=== PATIENT | male | born 1950 | race Caucasian/White ===

== ENCOUNTER 2017-08-23 01:33 | Inpatient (IN) | payer MEDICARE, MEDICAID ==
[2017-08-23 02:33] VITALS: BP 112/71
[2017-08-23] MEDS ORDERED: Magnesium Hydroxide (MOM) 30 mL UDC PO PRN ×2 (02:34→02:37)
[2017-08-23] MEDS ORDERED: Maalox 30 mL Cup PO PRN ×2 (02:34→02:37)
[2017-08-23] MEDS: Levothyroxine 0.025 Mg Tab PO SCH (06:58)
[2017-08-23] MEDS: Pantoprazole 40 mg EC Tab PO SCH (08:14)
[2017-08-23] MEDS: Multivitamin Tab PO SCH (08:14)
[2017-08-23] MEDS: Benztropine 1 MG TAB PO SCH (08:14)
[2017-08-23] MEDS ORDERED: Guaifenesin DM 10 ML UDC PO PRN (13:38)
[2017-08-23] MEDS: Albuterol/Ipratropium Neb 3 ML AERS HHN SCH ×2 (15:31→19:21)
[2017-08-23] MEDS: predniSONE 5 mg/5 mL UDC PO SCH (16:17)
[2017-08-23] MEDS: INSULIN ASPART SLIDING SCALE 100 UNITS/ML UNIT SUBQ SCH ×2 (17:11→21:59)
--- NOTE | 2017-08-23 17:16 | History & Physical ---
ADMIT DATE: 08/23/2017 PATIENT IDENTIFICATION: A 67-year-old male. REQUESTING PHYSICIAN: Dr. Farias. CHIEF COMPLAINT: "I am depressed, I am coughing and have short of breath." HISTORY OF PRESENT ILLNESS: A 67-year-old resident of [facility], presented to [facility] for suicidal ideation where patient was wanted to jump into traffic. The patient was seen by Emergency Room MD. He had appropriate workup and the patient was transferred to Geropsych Unit at [facility] for further care. PAST MEDICAL HISTORY: Remarkable for: 1. Diabetes. 2. Hypothyroidism. 3. Degenerative joint disease. 4. Peripheral neuropathy. 5. Chronic obstructive pulmonary disease. MEDICATIONS LIST: Medications patient taking, which include; 1. Tylenol. 2. Cogentin. 3. Coreg. 4. Cymbalta. 5. Lexapro. 6. Gabapentin. 7. Synthroid. 8. [place] carbonate. 9. Ativan. 10. Milk of magnesia. 11. Multivitamin. 12. Zyprexa. 13. Protonix. 14. Ambien. ALLERGIES: The patient is not allergic to medications. SOCIAL HISTORY: The patient lives in a [facility]. The patient quit smoking a few months ago. The patient denied any alcohol or drug use. The patient was once and he is . He has a son who lives in [place] and has no connection with him. FAMILY HISTORY: Unremarkable. REVIEW OF SYSTEMS: The patient complained of productive cough, congestion, and shortness of breath with exertion. The patient denies any paroxysmal nocturnal dyspnea or orthopnea. He did have a fall and he does have some abrasions on his hand as well as a resolving hematoma on the left eye. The patient denies any headache, denies any blurred vision or double vision. Denies any chest pain. Denies any abdominal pain. Denies any nausea, vomiting, or hematemesis. Denies any hematuria, hematochezia, or melena. Denies any seizure. PHYSICAL EXAMINATION: GENERAL: Alert, awake, oriented, lying in the bed. VITAL SIGNS: Temperature 97.3, pulse 76, respiratory rate 18, and blood pressure 112/71. HEENT: Normocephalic, atraumatic. Excoriation on the forehead, nasolabial fold, and both cheeks area noted. Extraocular muscles are intact. Tongue was pink and coated. Oropharynx congested. Nasal mucosa congested. Sclerae without icterus. NECK: Supple, no JVD, no hepatojugular reflex. No lymphadenopathy, thyromegaly, or carotid bruit. HEART: Both heart sounds are regular. No S3, no S4. CHEST: Lung equal in expansion. ____ expiratory wheezing throughout. ABDOMEN: Soft. No guarding, no rigidity. Liver and spleen nonpalpable. No palpable mass. EXTREMITIES: No edema or cyanosis. Multiple superficial running on the dorsal aspect of the right hand noted, but no calf tenderness. Peripheral pulses are +1. NEUROLOGIC: Alert and awake, follows command. No facial asymmetry. Power in upper and lower extremities 5-. Sensation to touch were decreased in both lower extremity. Slightly broad-based gait noted. RECTAL EXAMINATION: Not done. EXTERNAL GENITAL EXAMINATION: Not done. AVAILABLE DIAGNOSTIC DATA: Performed at hospital at [facility] has been reviewed. CLINICAL IMPRESSION: 1. Psychotic disorder exacerbation. 2. Chronic obstructive pulmonary disease exacerbation. 3. Diabetes mellitus. 4. Rosacea. 5. Hypertension. 6. Hyperlipidemia. 7. Hypothyroidism. 8. Degenerative joint disease. 9. High risk for fall. 10. Debility. 11. Multiple superficial cuts and resolving hematoma on the right eye. PLAN: 1. The patient is admitted to Geropsych Unit. At this time, the patient is to have oxygen. 2. Nebulizer treatment. 3. Oral antibiotic. 4. Oral steroid. 5. Robitussin. 6. Hydrocortisone cream for the rash. 7. Monitor blood sugar and blood pressure. 8. Sliding scale insulin. 9. Appropriate home medicine reconciliation. 10. Fall precaution. 11. Psych medication and psych followup. 12. General nursing care. 13. The patient will be followed by us during the stay at Geropsych Unit. Sincerely, thank you, Dr. Farias, for giving me the opportunity to participate in patient of yours. JOB# [id number]
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
[2017-08-24] MEDS: Albuterol/Ipratropium Neb 3 ML AERS HHN SCH ×4 (00:44→19:44)
[2017-08-24] MEDS: Levothyroxine 0.025 Mg Tab PO SCH (06:47)
[2017-08-24] MEDS: INSULIN ASPART SLIDING SCALE 100 UNITS/ML UNIT SUBQ SCH ×4 (06:50→21:09)
[2017-08-24] MEDS: Benztropine 1 MG TAB PO SCH (08:15)
[2017-08-24] MEDS: Multivitamin Tab PO SCH (08:16)
[2017-08-24] MEDS: Pantoprazole 40 mg EC Tab PO SCH (08:16)
[2017-08-24] MEDS: predniSONE 5 mg/5 mL UDC PO SCH ×2 (09:01→16:46)
--- NOTE | 2017-08-24 12:15 | General Progress Note ---
Subjective - Review of Systems Subjective: Patient is seen and examined. Patient is feeling little better. Patient is still coughing and congested. Patient denies any fever, chills, chest pain, abdominal pain, nausea, vomiting, headache, seizure. Objective - Results Recent Labs: Laboratory Last Values POC Glucose 110 MG/DL (70 - 105) H 08/24/17 11:42 - Physical Exam Vitals and I&O: Vital Signs Temp 98.2 F 08/23/17 14:00 Pulse 72 08/24/17 08:17 Resp 20 08/24/17 08:00 BP 105/60 08/24/17 08:17 Pulse Ox 95 08/24/17 07:12 Intake & Output 08/23/17 08/24/17 08/24/17 18:59 06:59 18:59 Intake Total 1200 Balance 1200 Intake: Oral 1200 Other: # Bowel Movements 1 Active Medications: Current Medications Acetaminophen (Tylenol) 650 mg PO Q6H PRN PRN Reason: Mild Pain/Headache/T above 101 Stop: 10/22/17 02:33 Last Admin: 08/24/17 04:10 Dose: 650 mg Al Hydrox/Mg Hydrox/Simethicone (Maalox) 30 ml PO Q4HR PRN PRN Reason: GI DISTRESS Stop: 10/22/17 02:36 Albuterol/Ipratropium (Duoneb Neb) 3 ml HHN Q6HRT [facility] Stop: 10/22/17 15:59 Last Admin: 08/24/17 07:10 Dose: 3 ml Benztropine Mesylate (Cogentin) 1 mg PO DAILY [facility] Stop: 10/22/17 08:59 Last Admin: 08/24/17 08:15 Dose: 1 mg Carvedilol (Coreg) 6.25 mg PO BID [facility] Stop: 10/22/17 08:59 Last Admin: 08/24/17 08:17 Dose: Not Given Duloxetine HCl (Cymbalta) 30 mg PO BID [facility] PRN Reason: Protocol Stop: 10/22/17 08:59 Last Admin: 08/24/17 08:15 Dose: 30 mg Escitalopram Oxalate (Lexapro) 20 mg PO DAILY [facility] PRN Reason: Protocol Stop: 10/22/17 08:59 Last Admin: 08/24/17 08:16 Dose: 20 mg Gabapentin (Neurontin) 100 mg PO TID [facility] Stop: 10/22/17 08:59 Last Admin: 08/24/17 08:15 Dose: 100 mg Guaifenesin/Dextromethorphan (Robitussin Dm) 5 ml PO Q6HR PRN PRN Reason: Cough Stop: 10/22/17 13:37 Hydrocortisone (Hydrocortisone 1%) 1 appl TP BID [facility] Stop: 10/22/17 16:59 Last Admin: 08/24/17 08:17 Dose: 1 appl Insulin Aspart (Novolog Insulin Sliding Scale) 0 units SUBQ ACHS [facility] PRN Reason: Protocol Stop: 10/22/17 16:29 Last Admin: 08/24/17 11:44 Dose: Not Given Levofloxacin (Levaquin) 500 mg PO DAILY [facility] Stop: 10/23/17 08:59 Last Admin: 08/24/17 08:15 Dose: 500 mg Levothyroxine Sodium (Synthroid) 0.025 mg PO QDAC [facility] Stop: 10/22/17 07:29 Last Admin: 08/24/17 06:47 Dose: 0.025 mg [place] Carbonate (Eskalith) 300 mg PO TID [facility] PRN Reason: Protocol Stop: 10/22/17 08:59 Last Admin: 08/24/17 08:15 Dose: 300 mg Lorazepam (Ativan) 1 mg PO Q6H PRN; Protocol PRN Reason: Anxiety/Agitation Stop: 10/22/17 02:33 Last Admin: 08/24/17 09:01 Dose: 1 mg Magnesium Hydroxide (Milk Of Magnesia) 30 ml PO HS PRN PRN Reason: Constipation Multivitamins/Vitamin C (Theragran) 1 tab PO DAILY [facility] Stop: 10/22/17 08:59 Last Admin: 08/24/17 08:16 Dose: 1 tab Olanzapine (Zyprexa) 20 mg PO DAILY [facility] PRN Reason: Protocol Stop: 10/22/17 08:59 Last Admin: 08/24/17 08:16 Dose: 20 mg Ondansetron HCl (Zofran Odt) 4 mg PO Q6H PRN PRN Reason: Nausea / Vomiting Stop: 10/22/17 02:33 Pantoprazole Sodium (Protonix) 40 mg PO DAILY [facility] Stop: 10/22/17 08:59 Last Admin: 08/24/17 08:16 Dose: 40 mg Prednisone (Prednisone) 20 mg PO BID [facility] Stop: 08/27/17 16:59 Last Admin: 08/24/17 09:01 Dose: 20 mg Zolpidem Tartrate (Ambien) 5 mg PO HS PRN PRN Reason: Insomnia Stop: 10/22/17 02:36 General: Alert, Cooperative, No acute distress HEENT: Atraumatic, PERRLA, EOMI Neck: Supple, +2 carotid pulse wo bruit Cardiovascular: Regular rate, Normal S1, Normal S2 Lungs: Other (diffuse expiratory wheezing.) Abdomen: Bowel sounds, Soft, Other (no hepatosplenomegaly.) Extremities: Other (diffuse osteoarthritic changes present.) Neurological: Other (broad-based gait. Normal speech. Decreased power throughout upper and lower extremity.) Skin: Breakdown Psych/Mental Status: Other (depressed and labile.) Assessment/Plan - Assessment Assessment: COPD exacerbation. Diabetes mellitus. Hypothyroidism. Hypertension. DJD. Rosaceia High risk for fall. Debility. Decline in self care and mobility. - Plan Plan: By mouth antibiotic. By mouth prednisone. Hand-held nebulizer. Symptoms management. Medication management. General nursing care. Psychiatric medication. Psych follow-up. Fall precautions. Chronic disease management. Continue to follow this patient during his stay in the hospital.
[2017-08-24] MEDS ORDERED: Probiotic Screen MC PRN (16:20)
--- NOTE | 2017-08-24 18:07 | Progress Notes ---
DATE: 08/24/2017 SUBJECTIVE: The patient is seen on 08/24/2017. The patient remains symptomatic, still endorsing SI, wants to get hit by a bus or get hit by traffic, still feeling hopeless, helpless and despairing. Sleep poor. He states he is not eating well, low energy, feeling hopeless and helpless. MEDICATIONS: Reviewed including doses and frequencies. ASSESSMENT: The patient remains symptomatic, desperate for help, not safe for a lower level of care, still suicidal. PLAN: We will continue to monitor and given ongoing symptoms, not safe for discharge. [facility]# [id number]
[2017-08-25] MEDS: Albuterol/Ipratropium Neb 3 ML AERS HHN SCH ×4 (01:45→19:02)
[2017-08-25] MEDS: Levothyroxine 0.025 Mg Tab PO SCH (06:50)
[2017-08-25] MEDS: INSULIN ASPART SLIDING SCALE 100 UNITS/ML UNIT SUBQ SCH ×4 (07:18→22:28)
[2017-08-25] MEDS: Multivitamin Tab PO SCH (09:16)
[2017-08-25] MEDS: Benztropine 1 MG TAB PO SCH (09:17)
[2017-08-25] MEDS: Pantoprazole 40 mg EC Tab PO SCH (09:21)
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
--- NOTE | 2017-08-25 19:01 | General Progress Note ---
Subjective - Review of Systems Subjective: Patient is seen and examined. No new complaints. Objective - Results Recent Labs: Laboratory Last Values POC Glucose 126 MG/DL (70 - 105) H 08/25/17 16:35 - Physical Exam Vitals and I&O: Vital Signs Temp 98.2 F 08/25/17 15:00 Pulse 80 08/25/17 16:50 Resp 19 08/25/17 15:00 BP 129/78 08/25/17 16:50 Pulse Ox 97 08/25/17 15:00 Active Medications: Current Medications Acetaminophen (Tylenol) 650 mg PO Q6H PRN PRN Reason: Mild Pain/Headache/T above 101 Stop: 10/22/17 02:33 Last Admin: 08/25/17 15:23 Dose: 650 mg Al Hydrox/Mg Hydrox/Simethicone (Maalox) 30 ml PO Q4HR PRN PRN Reason: GI DISTRESS Stop: 10/22/17 02:36 Albuterol/Ipratropium (Duoneb Neb) 3 ml HHN Q6HRT [facility] Stop: 10/22/17 15:59 Last Admin: 08/25/17 13:44 Dose: 3 ml Benztropine Mesylate (Cogentin) 1 mg PO DAILY [facility] Stop: 10/22/17 08:59 Last Admin: 08/25/17 09:17 Dose: 1 mg Carvedilol (Coreg) 6.25 mg PO BID [facility] Stop: 10/22/17 08:59 Last Admin: 08/25/17 16:50 Dose: 6.25 mg Duloxetine HCl (Cymbalta) 30 mg PO BID [facility] PRN Reason: Protocol Stop: 10/22/17 08:59 Last Admin: 08/25/17 16:49 Dose: 30 mg Escitalopram Oxalate (Lexapro) 20 mg PO DAILY [facility] PRN Reason: Protocol Stop: 10/22/17 08:59 Last Admin: 08/25/17 09:21 Dose: 20 mg Gabapentin (Neurontin) 100 mg PO TID [facility] Stop: 10/22/17 08:59 Last Admin: 08/25/17 14:20 Dose: 100 mg Guaifenesin/Dextromethorphan (Robitussin Dm) 5 ml PO Q6HR PRN PRN Reason: Cough Stop: 10/22/17 13:37 Hydrocortisone (Hydrocortisone 1%) 1 appl TP BID [facility] Stop: 10/22/17 16:59 Last Admin: 08/25/17 16:53 Dose: Not Given Insulin Aspart (Novolog Insulin Sliding Scale) 0 units SUBQ ACHS [facility] PRN Reason: Protocol Stop: 10/22/17 16:29 Last Admin: 08/25/17 16:39 Dose: Not Given Levofloxacin (Levaquin) 500 mg PO DAILY [facility] Stop: 10/23/17 08:59 Last Admin: 08/25/17 09:17 Dose: 500 mg Levothyroxine Sodium (Synthroid) 0.025 mg PO QDAC [facility] Stop: 10/22/17 07:29 Last Admin: 08/25/17 06:50 Dose: 0.025 mg [place] Carbonate (Eskalith) 300 mg PO TID [facility] PRN Reason: Protocol Stop: 10/22/17 08:59 Last Admin: 08/25/17 14:20 Dose: 300 mg Lorazepam (Ativan) 1 mg PO Q6H PRN; Protocol PRN Reason: Anxiety/Agitation Stop: 10/22/17 02:33 Last Admin: 08/25/17 14:20 Dose: 1 mg Magnesium Hydroxide (Milk Of Magnesia) 30 ml PO HS PRN PRN Reason: Constipation Miscellaneous (Probiotic Screen) 1 ea [facility] PRN PRN PRN Reason: PROTOCOL Stop: 10/23/17 16:19 Multivitamins/Vitamin C (Theragran) 1 tab PO DAILY [facility] Stop: 10/22/17 08:59 Last Admin: 08/25/17 09:16 Dose: 1 tab Olanzapine (Zyprexa) 20 mg PO DAILY [facility] PRN Reason: Protocol Stop: 10/22/17 08:59 Last Admin: 08/25/17 09:21 Dose: 20 mg Ondansetron HCl (Zofran Odt) 4 mg PO Q6H PRN PRN Reason: Nausea / Vomiting Stop: 10/22/17 02:33 Pantoprazole Sodium (Protonix) 40 mg PO DAILY [facility] Stop: 10/22/17 08:59 Last Admin: 08/25/17 09:21 Dose: 40 mg Prednisone (Deltasone) 20 mg PO BID [facility] Stop: 10/24/17 16:59 Last Admin: 08/25/17 16:49 Dose: 20 mg Zolpidem Tartrate (Ambien) 5 mg PO HS PRN PRN Reason: Insomnia Stop: 10/22/17 02:36 General: Alert, Cooperative, No acute distress HEENT: Atraumatic, PERRLA, EOMI Neck: Supple, +2 carotid pulse wo bruit Cardiovascular: Regular rate, Normal S1, Normal S2 Lungs: Other (diffuse expiratory wheezing.) Abdomen: Bowel sounds, Soft, Other (no hepatosplenomegaly.) Extremities: Other (diffuse osteoarthritic changes present.) Neurological: Other (broad-based gait. Normal speech. Decreased power throughout upper and lower extremity.) Skin: Breakdown Psych/Mental Status: Other (depressed and labile.) Assessment/Plan - Assessment Assessment: COPD exacerbation improving. Diabetes mellitus. Hypothyroidism. Hypertension. DJD. [place] High risk for fall. Debility. Decline in self care and mobility. - Plan Plan: PO antibiotic. PO prednisone as ordered. Hand-held nebulizer. Symptoms management. Medication management. General nursing care. Psychiatric medication. Psych follow-up. Fall precautions. Chronic disease management.
[2017-08-26] MEDS: Albuterol/Ipratropium Neb 3 ML AERS HHN SCH ×4 (01:02→19:54)
[2017-08-26] MEDS: Levothyroxine 0.025 Mg Tab PO SCH (06:53)
[2017-08-26] MEDS: INSULIN ASPART SLIDING SCALE 100 UNITS/ML UNIT SUBQ SCH ×4 (07:01→21:00)
[2017-08-26] MEDS: Pantoprazole 40 mg EC Tab PO SCH (08:52)
[2017-08-26] MEDS: Multivitamin Tab PO SCH (08:54)
[2017-08-26] MEDS: Benztropine 1 MG TAB PO SCH (08:54)
--- NOTE | 2017-08-26 15:48 | Internal Medicine Prog Note ---
Internal Medicine Subjective - Subjective Service Date: 08/26/17 Patient seen and examined:: with staff Patient is:: awake, verbal, in bed, talking Per staff patient has:: no adverse event (HE EATING WELL AND TAKE MEDICATION) Internal Medicine Objective - Results Recent Labs: Laboratory Last Values POC Glucose 110 MG/DL (70 - 105) H 08/26/17 06:40 - Physical Exam Vitals and I&O: Vital Signs Temp 97.6 F 08/26/17 06:58 Pulse 82 08/26/17 13:03 Resp 18 08/26/17 15:38 BP 119/70 08/26/17 06:58 Pulse Ox 96 08/26/17 13:03 Intake & Output 08/25/17 08/26/17 08/26/17 18:59 06:59 18:59 Intake Total 480 Balance 480 Intake: Oral 480 Other: # Voids 1 Active Medications: Current Medications Acetaminophen (Tylenol) 650 mg PO Q6H PRN PRN Reason: Mild Pain/Headache/T above 101 Stop: 10/22/17 02:33 Last Admin: 08/26/17 11:04 Dose: 650 mg Al Hydrox/Mg Hydrox/Simethicone (Maalox) 30 ml PO Q4HR PRN PRN Reason: GI DISTRESS Stop: 10/22/17 02:36 Albuterol/Ipratropium (Duoneb Neb) 3 ml HHN Q6HRT [facility] Stop: 10/22/17 15:59 Last Admin: 08/26/17 13:03 Dose: Not Given Benztropine Mesylate (Cogentin) 1 mg PO DAILY [facility] Stop: 10/22/17 08:59 Last Admin: 08/26/17 08:54 Dose: 1 mg Carvedilol (Coreg) 6.25 mg PO BID [facility] Stop: 10/22/17 08:59 Last Admin: 08/26/17 08:53 Dose: Not Given Duloxetine HCl (Cymbalta) 30 mg PO BID [facility] PRN Reason: Protocol Stop: 10/22/17 08:59 Last Admin: 08/26/17 08:53 Dose: 30 mg Escitalopram Oxalate (Lexapro) 20 mg PO DAILY [facility] PRN Reason: Protocol Stop: 10/22/17 08:59 Last Admin: 08/26/17 08:54 Dose: 20 mg Gabapentin (Neurontin) 300 mg PO TID [facility] Stop: 10/25/17 15:44 Guaifenesin/Dextromethorphan (Robitussin Dm) 5 ml PO Q6HR PRN PRN Reason: Cough Stop: 10/22/17 13:37 Hydrocortisone (Hydrocortisone 1%) 1 appl TP BID [facility] Stop: 10/22/17 16:59 Last Admin: 08/25/17 16:53 Dose: Not Given Insulin Aspart (Novolog Insulin Sliding Scale) 0 units SUBQ ACHS [facility] PRN Reason: Protocol Stop: 10/22/17 16:29 Last Admin: 08/26/17 13:18 Dose: Not Given Levofloxacin (Levaquin) 500 mg PO DAILY [facility] Stop: 10/23/17 08:59 Last Admin: 08/26/17 08:52 Dose: 500 mg Levothyroxine Sodium (Synthroid) 0.025 mg PO QDAC [facility] Stop: 10/22/17 07:29 Last Admin: 08/26/17 06:53 Dose: 0.025 mg [place] Carbonate (Eskalith) 300 mg PO TID [facility] PRN Reason: Protocol Stop: 10/22/17 08:59 Last Admin: 08/26/17 13:18 Dose: 300 mg Lorazepam (Ativan) 1 mg PO Q6H PRN; Protocol PRN Reason: Anxiety/Agitation Stop: 10/22/17 02:33 Last Admin: 08/26/17 15:02 Dose: 1 mg Lorazepam (Ativan) 1 mg PO Q6HR PRN; Protocol PRN Reason: Agitation Stop: 10/25/17 15:23 Magnesium Hydroxide (Milk Of Magnesia) 30 ml PO HS PRN PRN Reason: Constipation Miscellaneous (Probiotic Screen) 1 ea [facility] PRN PRN PRN Reason: PROTOCOL Stop: 10/23/17 16:19 Multivitamins/Vitamin C (Theragran) 1 tab PO DAILY [facility] Stop: 10/22/17 08:59 Last Admin: 08/26/17 08:54 Dose: 1 tab Olanzapine (Zyprexa) 20 mg PO DAILY [facility] PRN Reason: Protocol Stop: 10/22/17 08:59 Last Admin: 08/26/17 08:54 Dose: 20 mg Ondansetron HCl (Zofran Odt) 4 mg PO Q6H PRN PRN Reason: Nausea / Vomiting Stop: 10/22/17 02:33 Pantoprazole Sodium (Protonix) 40 mg PO DAILY [facility] Stop: 10/22/17 08:59 Last Admin: 08/26/17 08:52 Dose: 40 mg Prednisone (Deltasone) 20 mg PO BID [facility] Stop: 10/24/17 16:59 Last Admin: 08/26/17 08:54 Dose: 20 mg Zolpidem Tartrate (Ambien) 5 mg PO HS PRN PRN Reason: Insomnia Stop: 10/22/17 02:36 General: alert HEENT: NC/AT, PERRLA, EOMI, anicteric sclerae, throat clear Neck: Supple, No JVD, No thyromegaly, +2 carotid pulse wo bruit, + JVD Lungs: CTAB Cardiovascular: RRR, Normal S1, Normal S2, without murmur Abdomen: soft, non-tender, non-distended Extremities: clear Neurological: no change Internal Medicine Assmt/Plan - Assessment Assessment: 1.COPD. 2.DM. 3.HTN. 4.HYPOTHYROIDISEM - Plan Plan: CONTINUE ON CURRENT MEDICATION AND DIET.
--- NOTE | 2017-08-26 20:20 | Progress Notes ---
DATE: 08/26/2017 SUBJECTIVE: The patient is seen, chart reviewed, discussed with staff. The patient states he feels suicidal, hopeless, despairing, want to drown himself, throwing water on his head and drowning efforts. States he feels hopeless, despairing "let me , let me ". Nothing works. The patient currently on Zyprexa, lithium, having a hard time with treatment. Currently, also on Cymbalta, gabapentin. The patient noting that he feels desperate for help. No psychotic symptoms noted. Sleeping fairly well. Appetite fair. Staff is closely monitoring him given his symptoms. ASSESSMENT: The patient remains symptomatic, depressed, withdrawn, suicidal, not stefan for safety. PLAN: Continue Cymbalta, continue Lexapro, continue lithium. We will increase Zyprexa. Will monitor and follow up. Will transfer to higher acuity locked unit at this time. JOB# [id number]
[2017-08-27] MEDS: INSULIN ASPART SLIDING SCALE 100 UNITS/ML UNIT SUBQ SCH ×4 (06:35→21:01)
[2017-08-27] MEDS: Levothyroxine 0.025 Mg Tab PO SCH (06:45)
[2017-08-27] MEDS: Albuterol/Ipratropium Neb 3 ML AERS HHN SCH ×3 (07:21→19:24)
[2017-08-27] MEDS: Benztropine 1 MG TAB PO SCH (08:16)
[2017-08-27] MEDS: Pantoprazole 40 mg EC Tab PO SCH (08:16)
[2017-08-27] MEDS: Multivitamin Tab PO SCH (08:16)
[2017-08-28] MEDS: Albuterol/Ipratropium Neb 3 ML AERS HHN SCH ×4 (01:05→19:35)
[2017-08-28] MEDS: Levothyroxine 0.025 Mg Tab PO SCH (06:43)
[2017-08-28] MEDS: INSULIN ASPART SLIDING SCALE 100 UNITS/ML UNIT SUBQ SCH ×4 (06:43→20:43)
[2017-08-28] MEDS: Pantoprazole 40 mg EC Tab PO SCH (08:31)
[2017-08-28] MEDS: Benztropine 1 MG TAB PO SCH (08:33)
[2017-08-28] MEDS: Multivitamin Tab PO SCH (08:35)
--- NOTE | 2017-08-28 15:31 | Internal Medicine Prog Note ---
Internal Medicine Subjective - Subjective Patient is:: awake, verbal, in bed, talking Per staff patient has:: no adverse event (HE EATING WELL AND TAKE MEDICATION) Internal Medicine Objective - Results Recent Labs: Laboratory Last Values POC Glucose 110 MG/DL (70 - 105) H 08/28/17 11:26 - Physical Exam Vitals and I&O: Vital Signs Temp 98.3 F 08/27/17 14:00 Pulse 87 08/28/17 13:20 Resp 20 08/28/17 13:20 BP 128/74 08/28/17 08:33 Pulse Ox 96 08/28/17 13:20 Intake & Output 08/27/17 08/28/17 08/28/17 18:59 06:59 18:59 Intake Total 1200 Balance 1200 Intake: Oral 1200 Other: # Bowel Movements 1 Stool Characteristics Soft Active Medications: Current Medications Acetaminophen (Tylenol) 650 mg PO Q6H PRN PRN Reason: Mild Pain/Headache/T above 101 Stop: 10/22/17 02:33 Last Admin: 08/28/17 10:24 Dose: 650 mg Al Hydrox/Mg Hydrox/Simethicone (Maalox) 30 ml PO Q4HR PRN PRN Reason: GI DISTRESS Stop: 10/22/17 02:36 Albuterol/Ipratropium (Duoneb Neb) 3 ml HHN Q6HRT [facility] Stop: 10/22/17 15:59 Last Admin: 08/28/17 13:18 Dose: Not Given Benztropine Mesylate (Cogentin) 1 mg PO DAILY [facility] Stop: 10/22/17 08:59 Last Admin: 08/28/17 08:33 Dose: 1 mg Carvedilol (Coreg) 6.25 mg PO BID [facility] Stop: 10/22/17 08:59 Last Admin: 08/28/17 08:33 Dose: 6.25 mg Clonazepam (Klonopin) 0.5 mg PO BID [facility] PRN Reason: Protocol Stop: 10/26/17 16:59 Last Admin: 08/28/17 10:19 Dose: 0.5 mg Duloxetine HCl (Cymbalta) 30 mg PO BID [facility] PRN Reason: Protocol Stop: 10/22/17 08:59 Last Admin: 08/28/17 08:31 Dose: 30 mg Escitalopram Oxalate (Lexapro) 20 mg PO DAILY [facility] PRN Reason: Protocol Stop: 10/22/17 08:59 Last Admin: 08/28/17 08:31 Dose: 20 mg Gabapentin (Neurontin) 300 mg PO TID [facility] Stop: 10/25/17 15:44 Last Admin: 08/28/17 13:04 Dose: 300 mg Guaifenesin/Dextromethorphan (Robitussin Dm) 5 ml PO Q6HR PRN PRN Reason: Cough Stop: 10/22/17 13:37 Hydrocortisone (Hydrocortisone 1%) 1 appl TP BID [facility] Stop: 10/22/17 16:59 Last Admin: 08/28/17 09:12 Dose: 1 appl Insulin Aspart (Novolog Insulin Sliding Scale) 0 units SUBQ ACHS [facility] PRN Reason: Protocol Stop: 10/22/17 16:29 Last Admin: 08/28/17 11:27 Dose: Not Given Levofloxacin (Levaquin) 500 mg PO DAILY [facility] Stop: 10/23/17 08:59 Last Admin: 08/28/17 08:28 Dose: 500 mg Levothyroxine Sodium (Synthroid) 0.025 mg PO QDAC [facility] Stop: 10/22/17 07:29 Last Admin: 08/28/17 06:43 Dose: 0.025 mg [place] Carbonate (Eskalith) 300 mg PO TID [facility] PRN Reason: Protocol Stop: 10/22/17 08:59 Last Admin: 08/28/17 13:06 Dose: 300 mg Lorazepam (Ativan) 1 mg PO Q6HR PRN; Protocol PRN Reason: Agitation Stop: 10/25/17 15:23 Last Admin: 08/28/17 14:37 Dose: 1 mg Magnesium Hydroxide (Milk Of Magnesia) 30 ml PO HS PRN PRN Reason: Constipation Miscellaneous (Probiotic Screen) 1 ea MC PRN PRN PRN Reason: PROTOCOL Stop: 10/23/17 16:19 Multivitamins/Vitamin C (Theragran) 1 tab PO DAILY [facility] Stop: 10/22/17 08:59 Last Admin: 08/28/17 08:35 Dose: 1 tab Olanzapine (Zyprexa) 20 mg PO DAILY [facility] PRN Reason: Protocol Stop: 10/22/17 08:59 Last Admin: 08/28/17 08:32 Dose: 20 mg Olanzapine (Zyprexa) 5 mg PO DAILY [facility] PRN Reason: Protocol Stop: 10/27/17 08:59 Last Admin: 08/28/17 09:11 Dose: 5 mg Ondansetron HCl (Zofran Odt) 4 mg PO Q6H PRN PRN Reason: Nausea / Vomiting Stop: 10/22/17 02:33 Pantoprazole Sodium (Protonix) 40 mg PO DAILY [facility] Stop: 10/22/17 08:59 Last Admin: 08/28/17 08:31 Dose: 40 mg Prednisone (Deltasone) 20 mg PO BID [facility] Stop: 10/24/17 16:59 Last Admin: 08/28/17 08:30 Dose: 20 mg General: alert HEENT: NC/AT, PERRLA, EOMI, anicteric sclerae, throat clear Neck: Supple, No JVD, No thyromegaly, +2 carotid pulse wo bruit, + JVD Lungs: CTAB Cardiovascular: RRR, Normal S1, Normal S2, without murmur Abdomen: soft, non-tender, non-distended Extremities: clear Neurological: no change Internal Medicine Assmt/Plan - Assessment Assessment: 1.COPD. 2.DM. 3.HTN. 4.HYPOTHYROIDISM - Plan Plan: CONTINUE ON CURRENT MEDICATION AND DIET. Nutritional Asmnt/Malnutr-PDOC - Dietary Evaluation Malnutrition Findings (Please click <Entered> for more info): Nutritional Asmnt/Malnutrition Start: 08/28/17 12: 51 Text: Status: Complete Freq: Document 08/28/17 12:51 JACKIE (Rec: 08/28/17 13:04 JACKIEG [id number]) Nutritional Asmnt/Malnutrition Patient General Information Nutritional Screening Moderate Risk Diagnosis psychosis Pertinent Medical Hx/Surgical Hx DM, hypothyroidism, DJD, peripheral neuropathy, COPD Subjective Information Pt seen eating lunch at the time of visit. Pt reported appetite OK, "I am very sick, food helped me feel better, taste good". Pt has no teeth noted, denied chewing or swallowing problem. Per notes, PO intake 100%. Current Diet Order/ Nutrition Support Low sodium 2gm Pertinent Medications novolog, levaquin, synthorid, theragran Pertinent Labs POC 110-356 in last 2 days Nutritional Hx/Data Height 1.83 m Height (Calculated Centimeters) 182.9 Current Weight (lbs) 90.718 kg Weight (Calculated Kilograms) 90.7 Weight (Calculated Grams) 22671.5 [place] Body Weight 178 % [place] Body Weight 112 Body Mass Index (BMI) 27.1 Weight Status Overweight GI Symptoms GI Symptoms None Last BM 08/27 Difficult in: None Skin Integrity/Comment: blackened abrasion to right knee, potential bruise to right eye Current %PO Good (75-100%) Estimated Nutritional Goals Calories/Kcals/Kg 25-30 Kcals Calculated 1180-4845 based on IBW 81kg Protein g/k Protein Calculated 81 Fluid: ml 2024-243ml (1ml/kcal) Nutritional Problem 1. Problem Problem altered nutrition related lab values Etiology hx of DM Signs/Symptoms: POC 110-356 Malnutrition Alert Protein-Calorie Malnutrition N/A Is there a minimum of two criteria No selected? Query Text:Check all the applicable criteria. A minimum of two criteria are recommended for diagnosis of either severe or non-severe malnutrition. Intervention/Recommendation Comments 1. Recommend adding CCHO-75g diet d/t elevated blood glucose and considering pt wt. 2. Monitor PO intake, wt, labs and skin integrity 3. F/U as moderate risk in -09/02 Expected Outcomes/Goals Expected Outcomes/Goals 1. PO intake continue to meet at least 75% of nutritional needs. 2. Wt stability, skin to remain intact, labs to approach WNL.
--- NOTE | 2017-08-29 00:51 | Progress Notes ---
DATE: 08/28/2017 SUBJECTIVE: The patient is seen, chart reviewed, discussed with staff. The patient remains suicidal, hopeless, despairing, still wants to get hit by a bus or drown himself. However, today he is feeling somewhat better, calmer, more amenable to treatment, enjoys listening to music, still on one to one. I did start him on Klonopin. Sleeping fairly well. Somewhat better rest. The last night, he is eating fairly well. ASSESSMENT: The patient remains symptomatic, depressed, suicidal, endorsing intent and plan. PLAN: Continue Klonopin. We will consider titration of the dose if the patient is able to tolerate a higher dose and also requires a higher dose. Discussed with staff. JOB# [id number]
[2017-08-29] MEDS: Albuterol/Ipratropium Neb 3 ML AERS HHN SCH ×4 (01:12→19:06)
[2017-08-29] MEDS: Levothyroxine 0.025 Mg Tab PO SCH (06:56)
[2017-08-29] MEDS: INSULIN ASPART SLIDING SCALE 100 UNITS/ML UNIT SUBQ SCH ×4 (06:58→20:25)
[2017-08-29] MEDS: Multivitamin Tab PO SCH (08:25)
[2017-08-29] MEDS: Benztropine 1 MG TAB PO SCH (08:25)
[2017-08-29] MEDS: Pantoprazole 40 mg EC Tab PO SCH (08:25)
--- NOTE | 2017-08-29 18:51 | Internal Medicine Prog Note ---
Internal Medicine Subjective - Subjective Service Date: 08/29/17 Patient seen and examined:: with staff (HE IS DOING BETTER,NO COMPLAINT) Patient is:: awake, verbal, in bed, talking Per staff patient has:: no adverse event (HE EATING WELL AND TAKE MEDICATION) Internal Medicine Objective - Results Recent Labs: Laboratory Last Values POC Glucose 226 MG/DL (70 - 105) H 08/29/17 16:21 - Physical Exam Vitals and I&O: Vital Signs Temp 98.4 F 08/29/17 14:00 Pulse 88 08/29/17 14:00 Resp 20 08/29/17 16:00 BP 137/80 08/29/17 14:00 Pulse Ox 96 08/29/17 14:00 Intake & Output 08/28/17 08/29/17 08/29/17 18:59 06:59 18:59 Intake Total 1200 Balance 1200 Intake: Oral 1200 Other: # Bowel Movements 1 Stool Characteristics Soft Soft Soft Active Medications: Current Medications Acetaminophen (Tylenol) 650 mg PO Q6H PRN PRN Reason: Mild Pain/Headache/T above 101 Stop: 10/22/17 02:33 Last Admin: 08/29/17 02:50 Dose: 650 mg Al Hydrox/Mg Hydrox/Simethicone (Maalox) 30 ml PO Q4HR PRN PRN Reason: GI DISTRESS Stop: 10/22/17 02:36 Albuterol/Ipratropium (Duoneb Neb) 3 ml HHN Q6HRT [facility] Stop: 10/22/17 15:59 Last Admin: 08/29/17 12:47 Dose: Not Given Benztropine Mesylate (Cogentin) 1 mg PO DAILY [facility] Stop: 10/22/17 08:59 Last Admin: 08/29/17 08:25 Dose: 1 mg Carvedilol (Coreg) 6.25 mg PO BID [facility] Stop: 10/22/17 08:59 Last Admin: 08/29/17 10:41 Dose: Not Given Clonazepam (Klonopin) 1 mg PO BID [facility] PRN Reason: Protocol Stop: 10/26/17 16:59 Last Admin: 08/29/17 16:22 Dose: 1 mg Duloxetine HCl (Cymbalta) 30 mg PO BID [facility] PRN Reason: Protocol Stop: 10/22/17 08:59 Last Admin: 08/29/17 16:21 Dose: 30 mg Escitalopram Oxalate (Lexapro) 20 mg PO DAILY [facility] PRN Reason: Protocol Stop: 10/22/17 08:59 Last Admin: 08/29/17 08:25 Dose: 20 mg Gabapentin (Neurontin) 300 mg PO TID [facility] Stop: 10/25/17 15:44 Last Admin: 08/29/17 13:02 Dose: 300 mg Guaifenesin/Dextromethorphan (Robitussin Dm) 5 ml PO Q6HR PRN PRN Reason: Cough Stop: 10/22/17 13:37 Hydrocortisone (Hydrocortisone 1%) 1 appl TP BID [facility] Stop: 10/22/17 16:59 Last Admin: 08/29/17 11:14 Dose: 1 appl Hydroxyzine Pamoate (Vistaril) 25 mg PO Q4HR PRN; Protocol PRN Reason: Anxiety Stop: 10/28/17 05:46 Last Admin: 08/29/17 06:12 Dose: 25 mg Insulin Aspart (Novolog Insulin Sliding Scale) 0 units SUBQ ACHS [facility] PRN Reason: Protocol Stop: 10/22/17 16:29 Last Admin: 08/29/17 16:36 Dose: 4 units Levofloxacin (Levaquin) 500 mg PO DAILY [facility] Stop: 10/23/17 08:59 Last Admin: 08/29/17 08:25 Dose: 500 mg Levothyroxine Sodium (Synthroid) 0.025 mg PO QDAC [facility] Stop: 10/22/17 07:29 Last Admin: 08/29/17 06:56 Dose: 0.025 mg [place] Carbonate (Eskalith) 300 mg PO TID [facility] PRN Reason: Protocol Stop: 10/22/17 08:59 Last Admin: 08/29/17 13:01 Dose: 300 mg Lorazepam (Ativan) 0.5 mg PO Q4HR PRN; Protocol PRN Reason: Agitation Stop: 10/28/17 05:59 Last Admin: 08/29/17 10:00 Dose: 0.5 mg Miscellaneous (Probiotic Screen) 1 ea MC PRN PRN PRN Reason: PROTOCOL Stop: 10/23/17 16:19 Multivitamins/Vitamin C (Theragran) 1 tab PO DAILY [facility] Stop: 10/22/17 08:59 Last Admin: 08/29/17 08:25 Dose: 1 tab Olanzapine (Zyprexa) 20 mg PO DAILY [facility] PRN Reason: Protocol Stop: 10/22/17 08:59 Last Admin: 08/29/17 08:24 Dose: 20 mg Olanzapine (Zyprexa) 5 mg PO DAILY [facility] PRN Reason: Protocol Stop: 10/27/17 08:59 Last Admin: 08/29/17 08:25 Dose: 5 mg Ondansetron HCl (Zofran Odt) 4 mg PO Q6H PRN PRN Reason: Nausea / Vomiting Stop: 10/22/17 02:33 Pantoprazole Sodium (Protonix) 40 mg PO DAILY [facility] Stop: 10/22/17 08:59 Last Admin: 08/29/17 08:25 Dose: 40 mg Prednisone (Deltasone) 20 mg PO BID [facility] Stop: 10/24/17 16:59 Last Admin: 08/29/17 16:22 Dose: 20 mg General: alert HEENT: NC/AT, PERRLA, EOMI, anicteric sclerae, throat clear Neck: Supple, No JVD, No thyromegaly, +2 carotid pulse wo bruit, + JVD Lungs: CTAB Cardiovascular: RRR, Normal S1, Normal S2, without murmur Abdomen: soft, non-tender, non-distended Extremities: clear Neurological: no change Internal Medicine Assmt/Plan - Assessment Assessment: 1.COPD. 2.DM. 3.HTN. 4.HYPOTHYROIDISM - Plan Plan: CONTINUE ON CURRENT MEDICATION AND DIET. Nutritional Asmnt/Malnutr-PDOC - Dietary Evaluation Malnutrition Findings (Please click <Entered> for more info): Nutritional Asmnt/Malnutrition Start: 08/28/17 12: 51 Text: Status: Complete Freq: Document 08/28/17 12:51 [facility] (Rec: 08/28/17 13:04 [facility] [id number]) Nutritional Asmnt/Malnutrition Patient General Information Nutritional Screening Moderate Risk Diagnosis psychosis Pertinent Medical Hx/Surgical Hx DM, hypothyroidism, DJD, peripheral neuropathy, COPD Subjective Information Pt seen eating lunch at the time of visit. Pt reported appetite OK, "I am very sick, food helped me feel better, taste good". Pt has no teeth noted, denied chewing or swallowing problem. Per notes, PO intake 100%. Current Diet Order/ Nutrition Support Low sodium 2gm Pertinent Medications novolog, levaquin, synthorid, theragran Pertinent Labs POC 110-356 in last 2 days Nutritional Hx/Data Height 1.83 m Height (Calculated Centimeters) 182.9 Current Weight (lbs) 90.718 kg Weight (Calculated Kilograms) 90.7 Weight (Calculated Grams) 49017.5 [place] Body Weight 178 % [place] Body Weight 112 Body Mass Index (BMI) 27.1 Weight Status Overweight GI Symptoms GI Symptoms None Last BM 08/27 Difficult in: None Skin Integrity/Comment: blackened abrasion to right knee, potential bruise to right eye Current %PO Good (75-100%) Estimated Nutritional Goals Calories/Kcals/Kg 25-30 Kcals Calculated 0674-0019 based on IBW 81kg Protein g/k Protein Calculated 81 Fluid: ml 2024-243ml (1ml/kcal) Nutritional Problem 1. Problem Problem altered nutrition related lab values Etiology hx of DM Signs/Symptoms: POC 110-356 Malnutrition Alert Protein-Calorie Malnutrition N/A Is there a minimum of two criteria No selected? Query Text:Check all the applicable criteria. A minimum of two criteria are recommended for diagnosis of either severe or non-severe malnutrition. Intervention/Recommendation Comments 1. Recommend adding CCHO-75g diet d/t elevated blood glucose and considering pt wt. 2. Monitor PO intake, wt, labs and skin integrity 3. F/U as moderate risk in -09/02 Expected Outcomes/Goals Expected Outcomes/Goals 1. PO intake continue to meet at least 75% of nutritional needs. 2. Wt stability, skin to remain intact, labs to approach WNL.
--- NOTE | 2017-08-29 21:52 | Progress Notes ---
DATE: 08/29/2017 SUBJECTIVE: The patient remains despairing, hopeless, still endorsing suicidal thoughts, very anxious, ruminative, asking for a dosage increase. States he cannot sleep at night. States he is very anxious. States he has racing thought. He is not stefan for safety. Recent dose increase of Zyprexa. He is also on Ativan. He is also on lithium. He is also on Lexapro and also Celexa. ASSESSMENT: The patient remains symptomatic, still suicidal, high anxiety, poor sleep. PLAN: We will continue to monitor. We will increase Klonopin today. Continue inpatient hospitalization. He is also on a one-to-one. We will increase Klonopin to help ease his anxiety and help him with his sleep at night time. JOB# [id number]
[2017-08-30] MEDS: Albuterol/Ipratropium Neb 3 ML AERS HHN SCH ×4 (00:58→20:07)
[2017-08-30] MEDS: INSULIN ASPART SLIDING SCALE 100 UNITS/ML UNIT SUBQ SCH ×5 (06:53→21:30)
[2017-08-30] MEDS: Levothyroxine 0.025 Mg Tab PO SCH (06:54)
--- NOTE | 2017-08-30 07:42 | Progress Notes ---
DATE: 08/30/2017 HISTORY OF PRESENT ILLNESS: The patient remains despairing, hopeless, still suicidal, anxious, ruminative, hitting his hand against the wall. Still requiring 1:1, still upset. Recent medication adjustments. The patient states he feels "a little bit better." Happy with the Klonopin dosing. Staff still concerned, still requiring a 1:1. ASSESSMENT: The patient remains symptomatic, depressed, overwhelmed, highly anxious, suicidal. PLAN: We will continue to monitor. Medications were reviewed. I will be increasing his Klonopin dosing today. JOB# [id number]
[2017-08-30] MEDS: Pantoprazole 40 mg EC Tab PO SCH (08:24)
[2017-08-30] MEDS: Multivitamin Tab PO SCH (08:24)
[2017-08-30] MEDS: Benztropine 1 MG TAB PO SCH (08:24)
--- NOTE | 2017-08-30 12:33 | Internal Medicine Prog Note ---
Internal Medicine Subjective - Subjective Service Date: 08/30/17 Patient seen and examined:: with staff (HE IS DOING BETTER) Patient is:: awake, verbal, in bed, talking Per staff patient has:: no adverse event (HE EATING WELL AND TAKE MEDICATION) Internal Medicine Objective - Results Recent Labs: Laboratory Last Values POC Glucose 128 MG/DL (70 - 105) H 08/30/17 11:41 - Physical Exam Vitals and I&O: Vital Signs Temp 98 F 08/30/17 06:11 Pulse 71 08/30/17 08:25 Resp 20 08/30/17 07:25 BP 136/79 08/30/17 08:25 Pulse Ox 97 08/30/17 07:25 Intake & Output 08/29/17 08/30/17 08/30/17 18:59 06:59 18:59 Intake Total 1200 360 Balance 1200 360 Intake: Oral 1200 360 Other: # Voids 2 # Bowel Movements 1 Stool Characteristics Soft Soft Active Medications: Current Medications Acetaminophen (Tylenol) 650 mg PO Q6H PRN PRN Reason: Mild Pain/Headache/T above 101 Stop: 10/22/17 02:33 Last Admin: 08/30/17 04:25 Dose: 650 mg Al Hydrox/Mg Hydrox/Simethicone (Maalox) 30 ml PO Q4HR PRN PRN Reason: GI DISTRESS Stop: 10/22/17 02:36 Albuterol/Ipratropium (Duoneb Neb) 3 ml HHN Q6HRT [facility] Stop: 10/22/17 15:59 Last Admin: 08/30/17 07:25 Dose: 3 ml Benztropine Mesylate (Cogentin) 1 mg PO DAILY [facility] Stop: 10/22/17 08:59 Last Admin: 08/30/17 08:24 Dose: 1 mg Carvedilol (Coreg) 6.25 mg PO BID [facility] Stop: 10/22/17 08:59 Last Admin: 08/30/17 08:25 Dose: 6.25 mg Clonazepam (Klonopin) 1 mg PO BID [facility] PRN Reason: Protocol Stop: 10/26/17 16:59 Last Admin: 08/30/17 08:23 Dose: 1 mg Clonazepam (Klonopin) 0.5 mg PO 1300 [facility] PRN Reason: Protocol Stop: 10/29/17 12:59 Duloxetine HCl (Cymbalta) 30 mg PO BID [facility] PRN Reason: Protocol Stop: 10/22/17 08:59 Last Admin: 08/30/17 08:24 Dose: 30 mg Escitalopram Oxalate (Lexapro) 20 mg PO DAILY [facility] PRN Reason: Protocol Stop: 10/22/17 08:59 Last Admin: 08/30/17 08:25 Dose: 20 mg Gabapentin (Neurontin) 300 mg PO TID [facility] Stop: 10/25/17 15:44 Last Admin: 08/30/17 08:24 Dose: 300 mg Guaifenesin/Dextromethorphan (Robitussin Dm) 5 ml PO Q6HR PRN PRN Reason: Cough Stop: 10/22/17 13:37 Hydrocortisone (Hydrocortisone 1%) 1 appl TP BID [facility] Stop: 10/22/17 16:59 Last Admin: 08/30/17 08:26 Dose: 1 appl Hydroxyzine Pamoate (Vistaril) 25 mg PO Q4HR PRN; Protocol PRN Reason: Anxiety Stop: 10/28/17 05:46 Last Admin: 08/30/17 11:19 Dose: 25 mg Insulin Aspart (Novolog Insulin Sliding Scale) 0 units SUBQ ACHS [facility] PRN Reason: Protocol Stop: 10/22/17 16:29 Last Admin: 08/30/17 11:46 Dose: Not Given Levothyroxine Sodium (Synthroid) 0.025 mg PO QDAC [facility] Stop: 10/22/17 07:29 Last Admin: 08/30/17 06:54 Dose: 0.025 mg [place] Carbonate (Eskalith) 300 mg PO TID [facility] PRN Reason: Protocol Stop: 10/22/17 08:59 Last Admin: 08/30/17 08:24 Dose: 300 mg Lorazepam (Ativan) 0.5 mg PO Q4HR PRN; Protocol PRN Reason: Agitation Stop: 10/28/17 05:59 Last Admin: 08/30/17 09:30 Dose: 0.5 mg Miscellaneous (Probiotic Screen) 1 ea MC PRN PRN PRN Reason: PROTOCOL Stop: 10/23/17 16:19 Multivitamins/Vitamin C (Theragran) 1 tab PO DAILY [facility] Stop: 10/22/17 08:59 Last Admin: 08/30/17 08:24 Dose: 1 tab Olanzapine (Zyprexa) 20 mg PO DAILY [facility] PRN Reason: Protocol Stop: 10/22/17 08:59 Last Admin: 08/30/17 08:25 Dose: 20 mg Olanzapine (Zyprexa) 5 mg PO DAILY [facility] PRN Reason: Protocol Stop: 10/27/17 08:59 Last Admin: 08/30/17 08:24 Dose: 5 mg Ondansetron HCl (Zofran Odt) 4 mg PO Q6H PRN PRN Reason: Nausea / Vomiting Stop: 10/22/17 02:33 Pantoprazole Sodium (Protonix) 40 mg PO DAILY [facility] Stop: 10/22/17 08:59 Last Admin: 08/30/17 08:24 Dose: 40 mg Prednisone (Deltasone) 20 mg PO BID [facility] Stop: 10/24/17 16:59 Last Admin: 08/30/17 08:24 Dose: 20 mg General: alert HEENT: NC/AT, PERRLA, EOMI, anicteric sclerae, throat clear Neck: Supple, No JVD, No thyromegaly, +2 carotid pulse wo bruit, + JVD Lungs: CTAB Cardiovascular: RRR, Normal S1, Normal S2, without murmur Abdomen: soft, non-tender, non-distended Extremities: clear Neurological: no change Internal Medicine Assmt/Plan - Assessment Assessment: 1.COPD. 2.DM. 3.HTN. 4.HYPOTHYROIDISM - Plan Plan: CONTINUE ON CURRENT MEDICATION AND DIET. Nutritional Asmnt/Malnutr-PDOC - Dietary Evaluation Malnutrition Findings (Please click <Entered> for more info): Nutritional Asmnt/Malnutrition Start: 08/28/17 12: 51 Text: Status: Complete Freq: Document 08/28/17 12:51 [facility] (Rec: 08/28/17 13:04 H[facility] [email or web address]) Nutritional Asmnt/Malnutrition Patient General Information Nutritional Screening Moderate Risk Diagnosis psychosis Pertinent Medical Hx/Surgical Hx DM, hypothyroidism, DJD, peripheral neuropathy, COPD Subjective Information Pt seen eating lunch at the time of visit. Pt reported appetite OK, "I am very sick, food helped me feel better, taste good". Pt has no teeth noted, denied chewing or swallowing problem. Per notes, PO intake 100%. Current Diet Order/ Nutrition Support Low sodium 2gm Pertinent Medications novolog, levaquin, synthorid, theragran Pertinent Labs POC 110-356 in last 2 days Nutritional Hx/Data Height 1.83 m Height (Calculated Centimeters) 182.9 Current Weight (lbs) 90.718 kg Weight (Calculated Kilograms) 90.7 Weight (Calculated Grams) 42218.5 [place] Body Weight 178 % [place] Body Weight 112 Body Mass Index (BMI) 27.1 Weight Status Overweight GI Symptoms GI Symptoms None Last BM 08/27 Difficult in: None Skin Integrity/Comment: blackened abrasion to right knee, potential bruise to right eye Current %PO Good (75-100%) Estimated Nutritional Goals Calories/Kcals/Kg 25-30 Kcals Calculated 4050-4890 based on IBW 81kg Protein g/k Protein Calculated 81 Fluid: ml 2024-243ml (1ml/kcal) Nutritional Problem 1. Problem Problem altered nutrition related lab values Etiology hx of DM Signs/Symptoms: POC 110-356 Malnutrition Alert Protein-Calorie Malnutrition N/A Is there a minimum of two criteria No selected? Query Text:Check all the applicable criteria. A minimum of two criteria are recommended for diagnosis of either severe or non-severe malnutrition. Intervention/Recommendation Comments 1. Recommend adding CCHO-75g diet d/t elevated blood glucose and considering pt wt. 2. Monitor PO intake, wt, labs and skin integrity 3. F/U as moderate risk in -09/02 Expected Outcomes/Goals Expected Outcomes/Goals 1. PO intake continue to meet at least 75% of nutritional needs. 2. Wt stability, skin to remain intact, labs to approach WNL.
--- NOTE | 2017-08-30 12:34 | Internal Medicine Prog Note ---
Internal Medicine Subjective - Subjective Service Date: 08/30/17 Patient seen and examined:: with staff (HE IS DOING WELL) Patient is:: awake, verbal, in bed, talking Per staff patient has:: no adverse event (HE EATING WELL AND TAKE MEDICATION) Internal Medicine Objective - Results Recent Labs: Laboratory Last Values POC Glucose 128 MG/DL (70 - 105) H 08/30/17 11:41 - Physical Exam Vitals and I&O: Vital Signs Temp 98 F 08/30/17 06:11 Pulse 71 08/30/17 08:25 Resp 20 08/30/17 07:25 BP 136/79 08/30/17 08:25 Pulse Ox 97 08/30/17 07:25 Intake & Output 08/29/17 08/30/17 08/30/17 18:59 06:59 18:59 Intake Total 1200 360 Balance 1200 360 Intake: Oral 1200 360 Other: # Voids 2 # Bowel Movements 1 Stool Characteristics Soft Soft Active Medications: Current Medications Acetaminophen (Tylenol) 650 mg PO Q6H PRN PRN Reason: Mild Pain/Headache/T above 101 Stop: 10/22/17 02:33 Last Admin: 08/30/17 04:25 Dose: 650 mg Al Hydrox/Mg Hydrox/Simethicone (Maalox) 30 ml PO Q4HR PRN PRN Reason: GI DISTRESS Stop: 10/22/17 02:36 Albuterol/Ipratropium (Duoneb Neb) 3 ml HHN Q6HRT [facility] Stop: 10/22/17 15:59 Last Admin: 08/30/17 07:25 Dose: 3 ml Benztropine Mesylate (Cogentin) 1 mg PO DAILY SEAN Stop: 10/22/17 08:59 Last Admin: 08/30/17 08:24 Dose: 1 mg Carvedilol (Coreg) 6.25 mg PO BID SAEN Stop: 10/22/17 08:59 Last Admin: 08/30/17 08:25 Dose: 6.25 mg Clonazepam (Klonopin) 1 mg PO BID SEAN PRN Reason: Protocol Stop: 10/26/17 16:59 Last Admin: 08/30/17 08:23 Dose: 1 mg Clonazepam (Klonopin) 0.5 mg PO 1300 SEAN PRN Reason: Protocol Stop: 10/29/17 12:59 Duloxetine HCl (Cymbalta) 30 mg PO BID SEAN PRN Reason: Protocol Stop: 10/22/17 08:59 Last Admin: 08/30/17 08:24 Dose: 30 mg Escitalopram Oxalate (Lexapro) 20 mg PO DAILY SEAN PRN Reason: Protocol Stop: 10/22/17 08:59 Last Admin: 08/30/17 08:25 Dose: 20 mg Gabapentin (Neurontin) 300 mg PO TID SEAN Stop: 10/25/17 15:44 Last Admin: 08/30/17 08:24 Dose: 300 mg Guaifenesin/Dextromethorphan (Robitussin Dm) 5 ml PO Q6HR PRN PRN Reason: Cough Stop: 10/22/17 13:37 Hydrocortisone (Hydrocortisone 1%) 1 appl TP BID SEAN Stop: 10/22/17 16:59 Last Admin: 08/30/17 08:26 Dose: 1 appl Hydroxyzine Pamoate (Vistaril) 25 mg PO Q4HR PRN; Protocol PRN Reason: Anxiety Stop: 10/28/17 05:46 Last Admin: 08/30/17 11:19 Dose: 25 mg Insulin Aspart (Novolog Insulin Sliding Scale) 0 units SUBQ ACHS SEAN PRN Reason: Protocol Stop: 10/22/17 16:29 Last Admin: 08/30/17 11:46 Dose: Not Given Levothyroxine Sodium (Synthroid) 0.025 mg PO QDAC SEAN Stop: 10/22/17 07:29 Last Admin: 08/30/17 06:54 Dose: 0.025 mg [place] Carbonate (Eskalith) 300 mg PO TID SEAN PRN Reason: Protocol Stop: 10/22/17 08:59 Last Admin: 08/30/17 08:24 Dose: 300 mg Lorazepam (Ativan) 0.5 mg PO Q4HR PRN; Protocol PRN Reason: Agitation Stop: 10/28/17 05:59 Last Admin: 08/30/17 09:30 Dose: 0.5 mg Miscellaneous (Probiotic Screen) 1 ea MC PRN PRN PRN Reason: PROTOCOL Stop: 10/23/17 16:19 Multivitamins/Vitamin C (Theragran) 1 tab PO DAILY SEAN Stop: 10/22/17 08:59 Last Admin: 08/30/17 08:24 Dose: 1 tab Olanzapine (Zyprexa) 20 mg PO DAILY [facility] PRN Reason: Protocol Stop: 10/22/17 08:59 Last Admin: 08/30/17 08:25 Dose: 20 mg Olanzapine (Zyprexa) 5 mg PO DAILY SEAN PRN Reason: Protocol Stop: 10/27/17 08:59 Last Admin: 08/30/17 08:24 Dose: 5 mg Ondansetron HCl (Zofran Odt) 4 mg PO Q6H PRN PRN Reason: Nausea / Vomiting Stop: 10/22/17 02:33 Pantoprazole Sodium (Protonix) 40 mg PO DAILY [facility] Stop: 10/22/17 08:59 Last Admin: 08/30/17 08:24 Dose: 40 mg Prednisone (Deltasone) 20 mg PO BID [facility] Stop: 10/24/17 16:59 Last Admin: 08/30/17 08:24 Dose: 20 mg General: alert HEENT: NC/AT, PERRLA, EOMI, anicteric sclerae, throat clear Neck: Supple, No JVD, No thyromegaly, +2 carotid pulse wo bruit, + JVD Lungs: CTAB Cardiovascular: RRR, Normal S1, Normal S2, without murmur Abdomen: soft, non-tender, non-distended Extremities: clear Neurological: no change Internal Medicine Assmt/Plan - Assessment Assessment: 1.COPD. 2.DM. 3.HTN. 4.HYPOTHYROIDISM - Plan Plan: CONTINUE ON CURRENT MEDICATION AND DIET. Nutritional Asmnt/Malnutr-PDOC - Dietary Evaluation Malnutrition Findings (Please click <Entered> for more info): Nutritional Asmnt/Malnutrition Start: 08/28/17 12: 51 Text: Status: Complete Freq: Document 08/28/17 12:51 [facility] (Rec: 08/28/17 13:04 [email or web address] [email or web address]) Nutritional Asmnt/Malnutrition Patient General Information Nutritional Screening Moderate Risk Diagnosis psychosis Pertinent Medical Hx/Surgical Hx DM, hypothyroidism, DJD, peripheral neuropathy, COPD Subjective Information Pt seen eating lunch at the time of visit. Pt reported appetite OK, "I am very sick, food helped me feel better, taste good". Pt has no teeth noted, denied chewing or swallowing problem. Per notes, PO intake 100%. Current Diet Order/ Nutrition Support Low sodium 2gm Pertinent Medications novolog, levaquin, synthorid, theragran Pertinent Labs POC 110-356 in last 2 days Nutritional Hx/Data Height 1.83 m Height (Calculated Centimeters) 182.9 Current Weight (lbs) 90.718 kg Weight (Calculated Kilograms) 90.7 Weight (Calculated Grams) 53999.5 [place] Body Weight 178 % [place] Body Weight 112 Body Mass Index (BMI) 27.1 Weight Status Overweight GI Symptoms GI Symptoms None Last BM 08/27 Difficult in: None Skin Integrity/Comment: blackened abrasion to right knee, potential bruise to right eye Current %PO Good (75-100%) Estimated Nutritional Goals Calories/Kcals/Kg 25-30 Kcals Calculated 4348-7678 based on IBW 81kg Protein g/k Protein Calculated 81 Fluid: ml 2024-243ml (1ml/kcal) Nutritional Problem 1. Problem Problem altered nutrition related lab values Etiology hx of DM Signs/Symptoms: POC 110-356 Malnutrition Alert Protein-Calorie Malnutrition N/A Is there a minimum of two criteria No selected? Query Text:Check all the applicable criteria. A minimum of two criteria are recommended for diagnosis of either severe or non-severe malnutrition. Intervention/Recommendation Comments 1. Recommend adding CCHO-75g diet d/t elevated blood glucose and considering pt wt. 2. Monitor PO intake, wt, labs and skin integrity 3. F/U as moderate risk in -09/02 Expected Outcomes/Goals Expected Outcomes/Goals 1. PO intake continue to meet at least 75% of nutritional needs. 2. Wt stability, skin to remain intact, labs to approach WNL.
[2017-08-31] MEDS: Albuterol/Ipratropium Neb 3 ML AERS HHN SCH ×5 (01:50→20:15)
[2017-08-31] MEDS: Levothyroxine 0.025 Mg Tab PO SCH (06:40)
[2017-08-31] MEDS: INSULIN ASPART SLIDING SCALE 100 UNITS/ML UNIT SUBQ SCH ×4 (06:43→21:00)
[2017-08-31] MEDS: OLANZAPINE PO SCH (09:23)
[2017-08-31] MEDS: Pantoprazole 40 mg EC Tab PO SCH (09:24)
[2017-08-31] MEDS: Multivitamin Tab PO SCH (09:25)
[2017-08-31] MEDS: Benztropine 1 MG TAB PO SCH (09:25)
--- NOTE | 2017-08-31 17:41 | Internal Medicine Prog Note ---
Internal Medicine Subjective - Subjective Service Date: 08/31/17 Patient seen and examined:: with staff Patient is:: awake, verbal, in bed, talking Per staff patient has:: no adverse event (HE EATING WELL AND TAKE MEDICATION) Internal Medicine Objective - Results Recent Labs: Laboratory Last Values POC Glucose 205 MG/DL (70 - 105) H 08/31/17 16:17 - Physical Exam Vitals and I&O: Vital Signs Temp 98.4 F 08/31/17 17:01 Pulse 79 08/31/17 17:01 Resp 20 08/31/17 17:01 BP 129/81 08/31/17 17:01 Pulse Ox 93 08/31/17 17:01 Intake & Output 08/30/17 08/31/17 08/31/17 18:59 06:59 18:59 Intake Total 1000 120 Output Total 2 Balance 998 120 Intake: Oral 1000 120 Output: Urine/Stool Mix 2 Other: # Voids 3 3 Stool Characteristics Soft Soft Soft Active Medications: Current Medications Acetaminophen (Tylenol) 650 mg PO Q6H PRN PRN Reason: Mild Pain/Headache/T above 101 Stop: 10/22/17 02:33 Last Admin: 08/31/17 05:59 Dose: 650 mg Al Hydrox/Mg Hydrox/Simethicone (Maalox) 30 ml PO Q4HR PRN PRN Reason: GI DISTRESS Stop: 10/22/17 02:36 Albuterol/Ipratropium (Duoneb Neb) 3 ml HHN Q6HRT [facility] Stop: 10/22/17 15:59 Last Admin: 08/31/17 13:12 Dose: 3 ml Benztropine Mesylate (Cogentin) 1 mg PO DAILY [facility] Stop: 10/22/17 08:59 Last Admin: 08/31/17 09:25 Dose: 1 mg Carvedilol (Coreg) 6.25 mg PO BID SEAN Stop: 10/22/17 08:59 Last Admin: 08/31/17 16:20 Dose: 6.25 mg Clonazepam (Klonopin) 1 mg PO BID SEAN PRN Reason: Protocol Stop: 10/26/17 16:59 Last Admin: 08/31/17 16:19 Dose: 1 mg Clonazepam (Klonopin) 0.5 mg PO 1300 SEAN PRN Reason: Protocol Stop: 10/29/17 12:59 Last Admin: 12/31/17 13:42 Dose: 0.5 mg Duloxetine HCl (Cymbalta) 30 mg PO BID SEAN PRN Reason: Protocol Stop: 10/22/17 08:59 Last Admin: 08/31/17 16:20 Dose: 30 mg Escitalopram Oxalate (Lexapro) 20 mg PO DAILY SEAN PRN Reason: Protocol Stop: 10/22/17 08:59 Last Admin: 08/31/17 09:23 Dose: 20 mg Gabapentin (Neurontin) 300 mg PO TID SEAN Stop: 10/25/17 15:44 Last Admin: 08/31/17 13:42 Dose: 300 mg Guaifenesin/Dextromethorphan (Robitussin Dm) 5 ml PO Q6HR PRN PRN Reason: Cough Stop: 10/22/17 13:37 Hydrocortisone (Hydrocortisone 1%) 1 appl TP BID [facility] Stop: 10/22/17 16:59 Last Admin: 08/31/17 16:19 Dose: Not Given Hydroxyzine Pamoate (Vistaril) 25 mg PO Q4HR PRN; Protocol PRN Reason: Anxiety Stop: 10/28/17 05:46 Last Admin: 08/30/17 23:22 Dose: 25 mg Insulin Aspart (Novolog Insulin Sliding Scale) 0 units SUBQ ACHS [facility] PRN Reason: Protocol Stop: 10/22/17 16:29 Last Admin: 08/31/17 16:34 Dose: 4 units Levothyroxine Sodium (Synthroid) 0.025 mg PO QDAC [facility] Stop: 10/22/17 07:29 Last Admin: 08/31/17 06:40 Dose: 0.025 mg [employer] Carbonate (Eskalith) 300 mg PO TID SEAN PRN Reason: Protocol Stop: 10/22/17 08:59 Last Admin: 08/31/17 13:42 Dose: 300 mg Lorazepam (Ativan) 0.5 mg PO Q4HR PRN; Protocol PRN Reason: Agitation Stop: 10/28/17 05:59 Last Admin: 08/31/17 13:42 Dose: 0.5 mg Miscellaneous (Probiotic Screen) 1 ea MC PRN PRN PRN Reason: PROTOCOL Stop: 10/23/17 16:19 Multivitamins/Vitamin C (Theragran) 1 tab PO DAILY [facility] Stop: 10/22/17 08:59 Last Admin: 08/31/17 09:25 Dose: 1 tab Olanzapine (Zyprexa) 5 mg PO DAILY SEAN PRN Reason: Protocol Stop: 10/27/17 08:59 Last Admin: 08/31/17 09:29 Dose: 5 mg Olanzapine 15 mg/ Olanzapine (10 mg) 25 mg PO DAILY [facility] Stop: 10/30/17 08:59 Last Admin: 08/31/17 09:23 Dose: 25 mg Ondansetron HCl (Zofran Odt) 4 mg PO Q6H PRN PRN Reason: Nausea / Vomiting Stop: 10/22/17 02:33 Pantoprazole Sodium (Protonix) 40 mg PO DAILY [facility] Stop: 10/22/17 08:59 Last Admin: 08/31/17 09:24 Dose: 40 mg Prednisone (Deltasone) 20 mg PO BID [facility] Stop: 10/24/17 16:59 Last Admin: 08/31/17 16:20 Dose: 20 mg General: alert HEENT: NC/AT, PERRLA, EOMI, anicteric sclerae, throat clear Neck: Supple, No JVD, No thyromegaly, +2 carotid pulse wo bruit, + JVD Lungs: CTAB Cardiovascular: RRR, Normal S1, Normal S2, without murmur Abdomen: soft, non-tender, non-distended Extremities: clear Neurological: no change Internal Medicine Assmt/Plan - Assessment Assessment: 1.COPD. 2.DM. 3.HTN. 4.HYPOTHYROIDISM - Plan Plan: CONTINUE ON CURRENT MEDICATION AND DIET. Nutritional Asmnt/Malnutr-PDOC - Dietary Evaluation Malnutrition Findings (Please click <Entered> for more info): Nutritional Asmnt/Malnutrition Start: 08/28/17 12: 51 Text: Status: Complete Freq: Document 08/28/17 12:51 LCJACKIE[facility] (Rec: 08/28/17 13:04 [email or web address] [email or web address]) Nutritional Asmnt/Malnutrition Patient General Information Nutritional Screening Moderate Risk Diagnosis psychosis Pertinent Medical Hx/Surgical Hx DM, hypothyroidism, DJD, peripheral neuropathy, COPD Subjective Information Pt seen eating lunch at the time of visit. Pt reported appetite OK, "I am very sick, food helped me feel better, taste good". Pt has no teeth noted, denied chewing or swallowing problem. Per notes, PO intake 100%. Current Diet Order/ Nutrition Support Low sodium 2gm Pertinent Medications novolog, levaquin, synthorid, theragran Pertinent Labs POC 110-356 in last 2 days Nutritional Hx/Data Height 1.83 m Height (Calculated Centimeters) 182.9 Current Weight (lbs) 90.718 kg Weight (Calculated Kilograms) 90.7 Weight (Calculated Grams) 83561.5 [place] Body Weight 178 % [place] Body Weight 112 Body Mass Index (BMI) 27.1 Weight Status Overweight GI Symptoms GI Symptoms None Last BM 08/27 Difficult in: None Skin Integrity/Comment: blackened abrasion to right knee, potential bruise to right eye Current %PO Good (75-100%) Estimated Nutritional Goals Calories/Kcals/Kg 25-30 Kcals Calculated 7103-6430 based on IBW 81kg Protein g/k Protein Calculated 81 Fluid: ml 2024-2430ml (1ml/kcal) Nutritional Problem 1. Problem Problem altered nutrition related lab values Etiology hx of DM Signs/Symptoms: POC 110-356 Malnutrition Alert Protein-Calorie Malnutrition N/A Is there a minimum of two criteria No selected? Query Text:Check all the applicable criteria. A minimum of two criteria are recommended for diagnosis of either severe or non-severe malnutrition. Intervention/Recommendation Comments 1. Recommend adding CCHO-75g diet d/t elevated blood glucose and considering pt wt. 2. Monitor PO intake, wt, labs and skin integrity 3. F/U as moderate risk in -09/02 Expected Outcomes/Goals Expected Outcomes/Goals 1. PO intake continue to meet at least 75% of nutritional needs. 2. Wt stability, skin to remain intact, labs to approach WNL.
--- NOTE | 2017-08-31 22:21 | Progress Notes ---
DATE: 08/31/2017 The patient is seen 08/31/2017. He remains symptomatic, still on a 1:1, still concerns for self-destructive behaviors, hitting his head against the wall behaviors. The patient with poor sleep, pacing behaviors. Still having a difficult time, complaining of a very high anxiety. No perceptual disturbances. He is asking to leave, but at the same time there are concerns about his safety. ASSESSMENT: The patient remains hopeless, despairing, self-destructive behaviors, intrusive thoughts. PLAN: We will continue to monitor. We will increase Zyprexa today. The patient is not safe for discharge. JOB# [id number]
[2017-09-01] MEDS: Albuterol/Ipratropium Neb 3 ML AERS HHN SCH ×5 (01:16→19:23)
[2017-09-01] MEDS: Levothyroxine 0.025 Mg Tab PO SCH (07:03)
[2017-09-01] MEDS: INSULIN ASPART SLIDING SCALE 100 UNITS/ML UNIT SUBQ SCH ×4 (07:06→20:12)
[2017-09-01] MEDS: Multivitamin Tab PO SCH (08:59)
[2017-09-01] MEDS: Pantoprazole 40 mg EC Tab PO SCH (08:59)
[2017-09-01] MEDS: Benztropine 1 MG TAB PO SCH (09:00)
--- NOTE | 2017-09-01 09:27 | Progress Notes ---
DATE: 09/01/2017 The patient seems to be improving, talking about suicidal, stating he feels somewhat better, calmer on exam, still, however, complaining of depression and anxiety, noting that any thoughts of self-harm are decreasing. Medications reviewed. He is tolerating well. ASSESSMENT: The patient is still despairing, still sad, depressed and anxious, but improvement noted. PLAN: We will continue to monitor. Continue medications at current dose. We will monitor and follow up. The patient also needs help with placement. [facility]# [id number]
[2017-09-01] MEDS: Albuterol Nebulizer 2.5mg/3mL HHN SCH (10:24)
[2017-09-01] MEDS: Ipratropium Neb 0.5 mg/2.5 mL UD HHN SCH (10:24)
[2017-09-01] MEDS ORDERED: Haloperidol Lactate 5 mg/mL 1mL Vial IM ONE (10:47)
[2017-09-01] MEDS ORDERED: Haloperidol Lactate 5 mg/mL 1mL Vial ONE (10:48)
[2017-09-01] MEDS: OLANZAPINE PO SCH (14:08)
[2017-09-01] MEDS ORDERED: Fleet Enema 135 mL RC ONE (19:30)
--- NOTE | 2017-09-01 23:25 | Internal Medicine Prog Note ---
Internal Medicine Subjective - Subjective Service Date: 09/01/17 Patient seen and examined:: with staff Patient is:: awake, verbal, in bed, talking Per staff patient has:: no adverse event (HE EATING WELL AND TAKE MEDICATION) Internal Medicine Objective - Results Recent Labs: Laboratory Last Values POC Glucose 266 MG/DL (70 - 105) H 09/01/17 17:44 - Physical Exam Vitals and I&O: Vital Signs Temp 98.0 F 09/01/17 20:00 Pulse 77 09/01/17 21:10 Resp 20 09/01/17 21:10 BP 139/82 09/01/17 20:00 Pulse Ox 95 09/01/17 21:10 Intake & Output 09/01/17 09/01/17 09/02/17 06:59 18:59 06:59 Intake Total 98 Balance 98 Intake: Oral 98 Other: Stool Characteristics Soft Soft Formed Formed Active Medications: Current Medications Acetaminophen (Tylenol) 650 mg PO Q6H PRN PRN Reason: Mild Pain/Headache/T above 101 Stop: 10/22/17 02:33 Last Admin: 09/01/17 20:11 Dose: 650 mg Al Hydrox/Mg Hydrox/Simethicone (Maalox) 30 ml PO Q4HR PRN PRN Reason: GI DISTRESS Stop: 10/22/17 02:36 Albuterol Sulfate (Albuterol 2.5mg/3ml Neb Ud) 2.5 mg HHN Q6HRT [facility] Stop: 09/03/17 06:59 Last Admin: 09/01/17 10:24 Dose: 2.5 mg Albuterol/Ipratropium (Duoneb Neb) 3 ml HHN Q6HRT [facility] Stop: 10/22/17 15:59 Last Admin: 09/01/17 19:23 Dose: 3 ml Benztropine Mesylate (Cogentin) 1 mg PO DAILY [facility] Stop: 10/22/17 08:59 Last Admin: 09/01/17 09:00 Dose: 1 mg Carvedilol (Coreg) 6.25 mg PO BID [facility] Stop: 10/22/17 08:59 Last Admin: 09/01/17 17:37 Dose: 6.25 mg Clonazepam (Klonopin) 1 mg PO BID [facility] PRN Reason: Protocol Stop: 10/26/17 16:59 Last Admin: 09/01/17 17:38 Dose: 1 mg Clonazepam (Klonopin) 0.5 mg PO 1300 [facility]AN PRN Reason: Protocol Stop: 10/29/17 12:59 Last Admin: 09/01/17 13:40 Dose: 0.5 mg Duloxetine HCl (Cymbalta) 30 mg PO BID [facility] PRN Reason: Protocol Stop: 10/22/17 08:59 Last Admin: 09/01/17 17:38 Dose: 30 mg Escitalopram Oxalate (Lexapro) 20 mg PO DAILY [facility] PRN Reason: Protocol Stop: 10/22/17 08:59 Last Admin: 09/01/17 08:58 Dose: 20 mg Gabapentin (Neurontin) 300 mg PO TID [facility] Stop: 10/25/17 15:44 Last Admin: 09/01/17 20:11 Dose: 300 mg Guaifenesin/Dextromethorphan (Robitussin Dm) 5 ml PO Q6HR PRN PRN Reason: Cough Stop: 10/22/17 13:37 Hydrocortisone (Hydrocortisone 1%) 1 appl TP BID [facility] Stop: 10/22/17 16:59 Last Admin: 09/01/17 18:15 Dose: Not Given Hydroxyzine Pamoate (Vistaril) 25 mg PO Q4HR PRN; Protocol PRN Reason: Anxiety Stop: 10/28/17 05:46 Last Admin: 08/30/17 23:22 Dose: 25 mg Insulin Aspart (Novolog Insulin Sliding Scale) 0 units SUBQ ACHS [facility] PRN Reason: Protocol Stop: 10/22/17 16:29 Last Admin: 09/01/17 20:12 Dose: 6 units Ipratropium [place] (Atrovent Neb 0.5mg/2.5ml) 0.5 mg HHN Q6HRT [facility] Stop: 09/03/17 06:59 Last Admin: 09/01/17 10:24 Dose: 0.5 mg Levothyroxine Sodium (Synthroid) 0.025 mg PO QDAC [facility] Stop: 10/22/17 07:29 Last Admin: 09/01/17 07:03 Dose: 0.025 mg [place] Carbonate (Eskalith) 300 mg PO TID [facility] PRN Reason: Protocol Stop: 10/22/17 08:59 Last Admin: 09/01/17 20:11 Dose: 300 mg Lorazepam (Ativan) 0.5 mg PO Q4HR PRN; Protocol PRN Reason: Agitation Stop: 10/28/17 05:59 Last Admin: 09/01/17 20:12 Dose: 0.5 mg Miscellaneous (Probiotic Screen) 1 ea MC PRN PRN PRN Reason: PROTOCOL Stop: 10/23/17 16:19 Multivitamins/Vitamin C (Theragran) 1 tab PO DAILY [facility] Stop: 10/22/17 08:59 Last Admin: 09/01/17 08:59 Dose: 1 tab Olanzapine (Zyprexa) 5 mg PO DAILY [facility] PRN Reason: Protocol Stop: 10/27/17 08:59 Last Admin: 09/01/17 08:59 Dose: 5 mg Olanzapine 15 mg/ Olanzapine (10 mg) 25 mg PO DAILY [facility] Stop: 10/30/17 08:59 Last Admin: 09/01/17 14:08 Dose: 25 mg Ondansetron HCl (Zofran Odt) 4 mg PO Q6H PRN PRN Reason: Nausea / Vomiting Stop: 10/22/17 02:33 Pantoprazole Sodium (Protonix) 40 mg PO DAILY [facility] Stop: 10/22/17 08:59 Last Admin: 09/01/17 08:59 Dose: 40 mg Prednisone (Deltasone) 20 mg PO BID [facility] Stop: 10/24/17 16:59 Last Admin: 09/01/17 17:38 Dose: 20 mg General: alert HEENT: NC/AT, PERRLA, EOMI, anicteric sclerae, throat clear Neck: Supple, No JVD, No thyromegaly, +2 carotid pulse wo bruit, + JVD Lungs: CTAB Cardiovascular: RRR, Normal S1, Normal S2, without murmur Abdomen: soft, non-tender, non-distended Extremities: clear Neurological: no change Internal Medicine Assmt/Plan - Assessment Assessment: 1.COPD. 2.DM. 3.HTN. 4.HYPOTHYROIDISM - Plan Plan: CONTINUE ON CURRENT MEDICATION AND DIET. Nutritional Asmnt/Malnutr-PDOC - Dietary Evaluation Malnutrition Findings (Please click <Entered> for more info): Nutritional Asmnt/Malnutrition Start: 08/28/17 12: 51 Text: Status: Complete Freq: Document 08/28/17 12:51 SARAH (Rec: 08/28/17 13:04 [email or web address]) Nutritional Asmnt/Malnutrition Patient General Information Nutritional Screening Moderate Risk Diagnosis psychosis Pertinent Medical Hx/Surgical Hx DM, hypothyroidism, DJD, peripheral neuropathy, COPD Subjective Information Pt seen eating lunch at the time of visit. Pt reported appetite OK, "I am very sick, food helped me feel better, taste good". Pt has no teeth noted, denied chewing or swallowing problem. Per notes, PO intake 100%. Current Diet Order/ Nutrition Support Low sodium 2gm Pertinent Medications novolog, levaquin, synthorid, theragran Pertinent Labs POC 110-356 in last 2 days Nutritional Hx/Data Height 1.83 m Height (Calculated Centimeters) 182.9 Current Weight (lbs) 90.718 kg Weight (Calculated Kilograms) 90.7 Weight (Calculated Grams) 42739.5 [place] Body Weight 178 % [place] Body Weight 112 Body Mass Index (BMI) 27.1 Weight Status Overweight GI Symptoms GI Symptoms None Last BM 08/27 Difficult in: None Skin Integrity/Comment: blackened abrasion to right knee, potential bruise to right eye Current %PO Good (75-100%) Estimated Nutritional Goals Calories/Kcals/Kg 25-30 Kcals Calculated 6042-6212 based on IBW 81kg Protein g/k Protein Calculated 81 Fluid: ml 2024-2430ml (1ml/kcal) Nutritional Problem 1. Problem Problem altered nutrition related lab values Etiology hx of DM Signs/Symptoms: POC 110-356 Malnutrition Alert Protein-Calorie Malnutrition N/A Is there a minimum of two criteria No selected? Query Text:Check all the applicable criteria. A minimum of two criteria are recommended for diagnosis of either severe or non-severe malnutrition. Intervention/Recommendation Comments 1. Recommend adding CCHO-75g diet d/t elevated blood glucose and considering pt wt. 2. Monitor PO intake, wt, labs and skin integrity 3. F/U as moderate risk in -09/02 Expected Outcomes/Goals Expected Outcomes/Goals 1. PO intake continue to meet at least 75% of nutritional needs. 2. Wt stability, skin to remain intact, labs to approach WNL.
[2017-09-02] MEDS: Albuterol/Ipratropium Neb 3 ML AERS HHN SCH ×2 (01:12→19:25)
[2017-09-02] MEDS: Levothyroxine 0.025 Mg Tab PO SCH (06:33)
[2017-09-02] MEDS: INSULIN ASPART SLIDING SCALE 100 UNITS/ML UNIT SUBQ SCH ×4 (06:34→21:03)
[2017-09-02] MEDS: Albuterol Nebulizer 2.5mg/3mL HHN SCH ×2 (07:24→15:01)
[2017-09-02] MEDS: Ipratropium Neb 0.5 mg/2.5 mL UD HHN SCH ×2 (07:24→15:01)
[2017-09-02] MEDS: Benztropine 1 MG TAB PO SCH (08:23)
[2017-09-02] MEDS: Pantoprazole 40 mg EC Tab PO SCH (08:24)
[2017-09-02] MEDS: Multivitamin Tab PO SCH (08:25)
[2017-09-02] MEDS: OLANZAPINE PO SCH (08:25)
--- NOTE | 2017-09-02 13:53 | Internal Medicine Prog Note ---
Internal Medicine Subjective - Subjective Service Date: 09/02/17 Patient seen and examined:: with staff Patient is:: awake, verbal, in bed, talking Per staff patient has:: no adverse event (HE EATING WELL AND TAKE MEDICATION) Internal Medicine Objective - Results Recent Labs: Laboratory Last Values POC Glucose 202 MG/DL (70 - 105) H 09/02/17 11:34 - Physical Exam Vitals and I&O: Vital Signs Temp 98.1 F 09/02/17 06:22 Pulse 96 09/02/17 08:26 Resp 20 09/02/17 08:43 BP 129/71 09/02/17 08:26 Pulse Ox 98 09/02/17 07:24 Intake & Output 09/01/17 09/02/17 09/02/17 18:59 06:59 18:59 Intake Total 98 Balance 98 Intake: Oral 98 Other: Stool Characteristics Soft Formed Active Medications: Current Medications Acetaminophen (Tylenol) 650 mg PO Q6H PRN PRN Reason: Mild Pain/Headache/T above 101 Stop: 10/22/17 02:33 Last Admin: 09/01/17 20:11 Dose: 650 mg Al Hydrox/Mg Hydrox/Simethicone (Maalox) 30 ml PO Q4HR PRN PRN Reason: GI DISTRESS Stop: 10/22/17 02:36 Albuterol Sulfate (Albuterol 2.5mg/3ml Neb Ud) 2.[address] [facility] Stop: 09/03/17 06:59 Last Admin: 09/02/17 07:24 Dose: 2.5 mg Albuterol/Ipratropium (Duoneb Neb) [address] [facility] Stop: 10/22/17 15:59 Last Admin: 09/02/17 01:12 Dose: Not Given Benztropine Mesylate (Cogentin) [address] [facility] Stop: 10/22/17 08:59 Last Admin: 09/02/17 08:23 Dose: 1 mg Carvedilol (Coreg) 6.[address] [facility] Stop: 10/22/17 08:59 Last Admin: 09/02/17 08:26 Dose: 6.25 mg Clonazepam (Klonopin) 1 mg PO BID [facility] PRN Reason: Protocol Stop: 10/26/17 16:59 Last Admin: 09/02/17 08:24 Dose: 1 mg Clonazepam (Klonopin) 1 mg PO 1300 [facility] PRN Reason: Protocol Stop: 11/01/17 13:14 Duloxetine HCl (Cymbalta) 30 mg PO BID [facility] PRN Reason: Protocol Stop: 10/22/17 08:59 Last Admin: 09/02/17 08:25 Dose: 30 mg Escitalopram Oxalate (Lexapro) 20 mg PO DAILY [facility] PRN Reason: Protocol Stop: 10/22/17 08:59 Last Admin: 09/02/17 08:24 Dose: 20 mg Gabapentin (Neurontin) 300 mg PO TID [facility] Stop: 10/25/17 15:44 Last Admin: 09/02/17 13:15 Dose: 300 mg Guaifenesin/Dextromethorphan (Robitussin Dm) 5 ml PO Q6HR PRN PRN Reason: Cough Stop: 10/22/17 13:37 Hydrocortisone (Hydrocortisone 1%) 1 appl TP BID [facility] Stop: 10/22/17 16:59 Last Admin: 09/01/17 18:15 Dose: Not Given Hydroxyzine Pamoate (Vistaril) 25 mg PO Q4HR PRN; Protocol PRN Reason: Anxiety Stop: 10/28/17 05:46 Last Admin: 09/02/17 11:01 Dose: 25 mg Insulin Aspart (Novolog Insulin Sliding Scale) 0 units SUBQ ACHS [facility] PRN Reason: Protocol Stop: 10/22/17 16:29 Last Admin: 09/02/17 12:04 Dose: 4 units Ipratropium [place] (Atrovent Neb 0.5mg/2.5ml) 0.5 mg HHN Q6HRT [facility] Stop: 09/03/17 06:59 Last Admin: 09/02/17 07:24 Dose: 0.5 mg Levothyroxine Sodium (Synthroid) 0.025 mg PO QDAC [facility] Stop: 10/22/17 07:29 Last Admin: 09/02/17 06:33 Dose: 0.025 mg [place] Carbonate (Eskalith) 300 mg PO TID [facility] PRN Reason: Protocol Stop: 10/22/17 08:59 Last Admin: 09/02/17 13:15 Dose: 300 mg Lorazepam (Ativan) 0.5 mg PO Q4HR PRN; Protocol PRN Reason: Agitation Stop: 10/28/17 05:59 Last Admin: 09/02/17 03:56 Dose: 0.5 mg Miscellaneous (Probiotic Screen) 1 ea MC PRN PRN PRN Reason: PROTOCOL Stop: 10/23/17 16:19 Multivitamins/Vitamin C (Theragran) 1 tab PO DAILY [facility] Stop: 10/22/17 08:59 Last Admin: 09/02/17 08:25 Dose: 1 tab Olanzapine (Zyprexa) 5 mg PO DAILY [facility] PRN Reason: Protocol Stop: 10/27/17 08:59 Last Admin: 09/02/17 08:25 Dose: 5 mg Olanzapine 15 mg/ Olanzapine (10 mg) [address] [facility] Stop: 10/30/17 08:59 Last Admin: 09/02/17 08:25 Dose: 25 mg Ondansetron HCl (Zofran Odt) 4 mg PO Q6H PRN PRN Reason: Nausea / Vomiting Stop: 10/22/17 02:33 Pantoprazole Sodium (Protonix) 40 mg PO DAILY [facility] Stop: 10/22/17 08:59 Last Admin: 09/02/17 08:24 Dose: 40 mg Prednisone (Deltasone) [address] [facility] Stop: 10/24/17 16:59 Last Admin: 09/02/17 08:25 Dose: 20 mg General: alert HEENT: NC/AT, PERRLA, EOMI, anicteric sclerae, throat clear Neck: Supple, No JVD, No thyromegaly, +2 carotid pulse wo bruit, + JVD Lungs: CTAB Cardiovascular: RRR, Normal S1, Normal S2, without murmur Abdomen: soft, non-tender, non-distended Extremities: clear Neurological: no change Internal Medicine Assmt/Plan - Assessment Assessment: 1.COPD. 2.DM. 3.HTN. 4.HYPOTHYROIDISM 5.dementia - Plan Plan: CONTINUE ON CURRENT MEDICATION AND DIET. Nutritional Asmnt/Malnutr-PDOC - Dietary Evaluation Malnutrition Findings (Please click <Entered> for more info): Nutritional Asmnt/Malnutrition Start: 08/28/17 12: 51 Text: Status: Complete Freq: Document 08/28/17 12:51 SARAH (Rec: 08/28/17 13:04 SARAH [email or web address]) Nutritional Asmnt/Malnutrition Patient General Information Nutritional Screening Moderate Risk Diagnosis psychosis Pertinent Medical Hx/Surgical Hx DM, hypothyroidism, DJD, peripheral neuropathy, COPD Subjective Information Pt seen eating lunch at the time of visit. Pt reported appetite OK, "I am very sick, food helped me feel better, taste good". Pt has no teeth noted, denied chewing or swallowing problem. Per notes, PO intake 100%. Current Diet Order/ Nutrition Support Low sodium 2gm Pertinent Medications novolog, levaquin, synthorid, theragran Pertinent Labs POC 110-356 in last 2 days Nutritional Hx/Data Height 1.83 m Height (Calculated Centimeters) 182.9 Current Weight (lbs) 90.718 kg Weight (Calculated Kilograms) 90.7 Weight (Calculated Grams) 19995.5 [place] Body Weight 178 % [place] Body Weight 112 Body Mass Index (BMI) 27.1 Weight Status Overweight GI Symptoms GI Symptoms None Last BM 08/27 Difficult in: None Skin Integrity/Comment: blackened abrasion to right knee, potential bruise to right eye Current %PO Good (75-100%) Estimated Nutritional Goals Calories/Kcals/Kg 25-30 Kcals Calculated 1300-9085 based on IBW 81kg Protein g/k Protein Calculated 81 Fluid: ml 2024-2430ml (1ml/kcal) Nutritional Problem 1. Problem Problem altered nutrition related lab values Etiology hx of DM Signs/Symptoms: POC 110-356 Malnutrition Alert Protein-Calorie Malnutrition N/A Is there a minimum of two criteria No selected? Query Text:Check all the applicable criteria. A minimum of two criteria are recommended for diagnosis of either severe or non-severe malnutrition. Intervention/Recommendation Comments 1. Recommend adding CCHO-75g diet d/t elevated blood glucose and considering pt wt. 2. Monitor PO intake, wt, labs and skin integrity 3. F/U as moderate risk in -09/02 Expected Outcomes/Goals Expected Outcomes/Goals 1. PO intake continue to meet at least 75% of nutritional needs. 2. Wt stability, skin to remain intact, labs to approach WNL.
--- NOTE | 2017-09-02 14:40 | Progress Notes ---
DATE: 09/02/2017 SUBJECTIVE: The patient states he is feeling better, still anxious, restless, still with behavioral disturbances. Attention seeking. He was hitting his head lightly against the door yesterday. It seems that this was an effort to gain more attention and also threw his chair and also threw his tray on the floor. Denying any SI. He wants to leave. MEDICATIONS: Reviewed, tolerating well, still on line of sight. ASSESSMENT: The patient is still desperate, sad, depressed. It seems he is improving, but he remains anxious and fairly attention seeking and wants more and more medications. PLAN: We will continue to monitor. I will increase his afternoon dose of Klonopin. We will monitor and follow up. JOB# [id number]
[2017-09-03] MEDS: Albuterol/Ipratropium Neb 3 ML AERS HHN SCH ×4 (01:42→19:40)
[2017-09-03] MEDS: Levothyroxine 0.025 Mg Tab PO SCH (06:29)
[2017-09-03] MEDS: INSULIN ASPART SLIDING SCALE 100 UNITS/ML UNIT SUBQ SCH ×4 (06:30→21:57)
[2017-09-03] MEDS ORDERED: Albuterol/Ipratropium Neb 3 ML AERS HHN ONE (07:24)
[2017-09-03] MEDS: Multivitamin Tab PO SCH (08:43)
[2017-09-03] MEDS: OLANZAPINE PO SCH (08:44)
[2017-09-03] MEDS: Benztropine 1 MG TAB PO SCH (08:45)
[2017-09-03] MEDS: Pantoprazole 40 mg EC Tab PO SCH (08:45)
--- NOTE | 2017-09-03 10:22 | General Progress Note ---
Subjective - Review of Systems Subjective: Patient is seen and examined. patient is still coughing. Breathing is still heavy. Patient denies fever,chill,chest pain,headache. Objective - Results Recent Labs: Laboratory Last Values POC Glucose 147 MG/DL (70 - 105) H 09/03/17 05:49 - Physical Exam Vitals and I&O: Vital Signs Temp 98.5 F 09/02/17 20:00 Pulse 83 09/03/17 08:47 Resp 18 09/03/17 08:20 BP 114/66 09/03/17 08:47 Pulse Ox 98 09/03/17 08:20 Intake & Output 09/02/17 09/03/17 09/03/17 18:59 06:59 18:59 Intake Total 360 Balance 360 Intake: Oral 360 Other: Stool Characteristics Soft Hard Active Medications: Current Medications Acetaminophen (Tylenol) 650 mg PO Q6H PRN PRN Reason: Mild Pain/Headache/T above 101 Stop: 10/22/17 02:33 Last Admin: 09/01/17 20:11 Dose: 650 mg Al Hydrox/Mg Hydrox/Simethicone (Maalox) 30 ml PO Q4HR PRN PRN Reason: GI DISTRESS Stop: 10/22/17 02:36 Albuterol/Ipratropium (Duoneb Neb) 3 ml HHN Q6HRT [facility] Stop: 10/22/17 15:59 Last Admin: 09/03/17 01:42 Dose: Not Given Benztropine Mesylate (Cogentin) 1 mg PO DAILY [facility] Stop: 10/22/17 08:59 Last Admin: 09/03/17 08:45 Dose: 1 mg Carvedilol (Coreg) 6.25 mg PO BID [facility] Stop: 10/22/17 08:59 Last Admin: 09/03/17 08:47 Dose: 6.25 mg Clonazepam (Klonopin) 1 mg PO BID [facility] PRN Reason: Protocol Stop: 10/26/17 16:59 Last Admin: 09/03/17 08:45 Dose: 1 mg Clonazepam (Klonopin) 1 mg PO 1300 [facility] PRN Reason: Protocol Stop: 11/01/17 14:14 Last Admin: 09/02/17 14:54 Dose: 1 mg Duloxetine HCl (Cymbalta) 30 mg PO BID [facility] PRN Reason: Protocol Stop: 10/22/17 08:59 Last Admin: 09/03/17 08:43 Dose: 30 mg Escitalopram Oxalate (Lexapro) 20 mg PO DAILY [facility] PRN Reason: Protocol Stop: 10/22/17 08:59 Last Admin: 09/03/17 08:46 Dose: 20 mg Gabapentin (Neurontin) 300 mg PO TID [facility] Stop: 10/25/17 15:44 Last Admin: 09/03/17 08:45 Dose: 300 mg Guaifenesin/Dextromethorphan (Robitussin Dm) 5 ml PO Q6HR PRN PRN Reason: Cough Stop: 10/22/17 13:37 Hydrocortisone (Hydrocortisone 1%) 1 appl TP BID [facility] Stop: 10/22/17 16:59 Last Admin: 09/03/17 09:02 Dose: 1 appl Hydroxyzine Pamoate (Vistaril) 25 mg PO Q4HR PRN; Protocol PRN Reason: Anxiety Stop: 10/28/17 05:46 Last Admin: 09/02/17 11:01 Dose: 25 mg Insulin Aspart (Novolog Insulin Sliding Scale) 0 units SUBQ ACHS [facility] PRN Reason: Protocol Stop: 10/22/17 16:29 Last Admin: 09/03/17 06:30 Dose: Not Given Levothyroxine Sodium (Synthroid) 0.025 mg PO QDAC [facility] Stop: 10/22/17 07:29 Last Admin: 09/03/17 06:29 Dose: 0.025 mg [place] Carbonate (Eskalith) 300 mg PO TID [facility] PRN Reason: Protocol Stop: 10/22/17 08:59 Last Admin: 09/03/17 08:43 Dose: 300 mg Lorazepam (Ativan) 0.5 mg PO Q4HR PRN; Protocol PRN Reason: Agitation Stop: 10/28/17 05:59 Last Admin: 09/03/17 05:03 Dose: 0.5 mg Miscellaneous (Probiotic Screen) 1 ea MC PRN PRN PRN Reason: PROTOCOL Stop: 10/23/17 16:19 Multivitamins/Vitamin C (Theragran) 1 tab PO DAILY [facility] Stop: 10/22/17 08:59 Last Admin: 09/03/17 08:43 Dose: 1 tab Olanzapine (Zyprexa) 5 mg PO DAILY [facility] PRN Reason: Protocol Stop: 10/27/17 08:59 Last Admin: 09/03/17 08:43 Dose: 5 mg Olanzapine 15 mg/ Olanzapine (10 mg) 25 mg PO DAILY [facility] Stop: 10/30/17 08:59 Last Admin: 09/03/17 08:44 Dose: 25 mg Ondansetron HCl (Zofran Odt) 4 mg PO Q6H PRN PRN Reason: Nausea / Vomiting Stop: 10/22/17 02:33 Pantoprazole Sodium (Protonix) 40 mg PO DAILY [facility] Stop: 10/22/17 08:59 Last Admin: 09/03/17 08:45 Dose: 40 mg Prednisone (Deltasone) 20 mg PO BID [facility] Stop: 10/24/17 16:59 Last Admin: 09/03/17 08:45 Dose: 20 mg General: Alert, Oriented x3, Cooperative, No acute distress HEENT: Atraumatic, PERRLA, EOMI Neck: Supple, +2 carotid pulse wo bruit Cardiovascular: Regular rate, Normal S1, Normal S2 Lungs: Other (diffuse expiratory wheezing.) Abdomen: Bowel sounds, Soft, Other (no hepatosplenomegaly.) Extremities: Other (diffuse osteoarthritic changes present.) Neurological: Other (broad-based gait. Normal speech. Decreased power throughout upper and lower extremity.) Skin: Breakdown Psych/Mental Status: Other (depressed and labile.) Assessment/Plan - Assessment Assessment: COPD exacerbation. Diabetes mellitus. Hypothyroidism. Hypertension. DJD. Rosaceia is better. High risk for fall. Debility. Decline in self care and mobility. - Plan Plan: Prn oxygen. Hand-held nebulizer. spriva as routine. Symptoms management. Medication management. General nursing care. Diabetes management. Psychiatric medication. Psych follow-up. Fall precautions. Chronic disease management. Nutritional Asmnt/Malnutr-PDOC - Dietary Evaluation Malnutrition Findings (Please click <Entered> for more info): Nutritional Asmnt/Malnutrition Start: 08/28/17 12: 51 Text: Status: Complete Freq: Document 08/28/17 12:51 JACKIE (Rec: 08/28/17 13:04 JACKIEG [id number]) Nutritional Asmnt/Malnutrition Patient General Information Nutritional Screening Moderate Risk Diagnosis psychosis Pertinent Medical Hx/Surgical Hx DM, hypothyroidism, DJD, peripheral neuropathy, COPD Subjective Information Pt seen eating lunch at the time of visit. Pt reported appetite OK, "I am very sick, food helped me feel better, taste good". Pt has no teeth noted, denied chewing or swallowing problem. Per notes, PO intake 100%. Current Diet Order/ Nutrition Support Low sodium 2gm Pertinent Medications novolog, levaquin, synthorid, theragran Pertinent Labs POC 110-356 in last 2 days Nutritional Hx/Data Height 1.83 m Height (Calculated Centimeters) 182.9 Current Weight (lbs) 90.718 kg Weight (Calculated Kilograms) 90.7 Weight (Calculated Grams) 16694.5 [place] Body Weight 178 % [place] Body Weight 112 Body Mass Index (BMI) 27.1 Weight Status Overweight GI Symptoms GI Symptoms None Last BM 08/27 Difficult in: None Skin Integrity/Comment: blackened abrasion to right knee, potential bruise to right eye Current %PO Good (75-100%) Estimated Nutritional Goals Calories/Kcals/Kg 25-30 Kcals Calculated 8218-0191 based on IBW 81kg Protein g/k Protein Calculated 81 Fluid: ml 2024-2430ml (1ml/kcal) Nutritional Problem 1. Problem Problem altered nutrition related lab values Etiology hx of DM Signs/Symptoms: POC 110-356 Malnutrition Alert Protein-Calorie Malnutrition N/A Is there a minimum of two criteria No selected? Query Text:Check all the applicable criteria. A minimum of two criteria are recommended for diagnosis of either severe or non-severe malnutrition. Intervention/Recommendation Comments 1. Recommend adding CCHO-75g diet d/t elevated blood glucose and considering pt wt. 2. Monitor PO intake, wt, labs and skin integrity 3. F/U as moderate risk in -09/02 Expected Outcomes/Goals Expected Outcomes/Goals 1. PO intake continue to meet at least 75% of nutritional needs. 2. Wt stability, skin to remain intact, labs to approach WNL.
--- NOTE | 2017-09-03 23:47 | Progress Notes ---
DATE: 09/03/2017 SUBJECTIVE: The patient was seen, chart reviewed, discussed with staff. The patient seems to be improving, cooperative, much calmer off a 1:1. Sleeping better, eating well, wanting to leave the hospital soon, but does not have a place to go, does not want to go back to previous facility. 1 MEDICATIONS: Reviewed including dosages and frequencies. ASSESSMENT: Improvement noted, suicidal thoughts are decreasing, anxiety lessening, less behavioral problems, less agitation. PLAN: We will continue to monitor. The patient is tolerating medications well. No side effects. We will coordinate care with social work regarding safe discharge plan and good psychiatric followup. JOB# [id number]
[2017-09-04] MEDS: Albuterol/Ipratropium Neb 3 ML AERS HHN SCH ×4 (01:40→20:30)
[2017-09-04] MEDS: INSULIN ASPART SLIDING SCALE 100 UNITS/ML UNIT SUBQ SCH ×4 (06:33→20:51)
[2017-09-04] MEDS: Levothyroxine 0.025 Mg Tab PO SCH (06:52)
[2017-09-04] MEDS: Benztropine 1 MG TAB PO SCH (08:31)
[2017-09-04] MEDS: OLANZAPINE PO SCH (08:32)
[2017-09-04] MEDS: Multivitamin Tab PO SCH (08:34)
[2017-09-04] MEDS: Pantoprazole 40 mg EC Tab PO SCH (08:35)
--- NOTE | 2017-09-04 12:10 | General Progress Note ---
Subjective - Review of Systems Subjective: Patient is seen and examined. patient is still coughing. Objective - Results Recent Labs: Laboratory Last Values POC Glucose 225 MG/DL (70 - 105) H 09/04/17 11:17 - Physical Exam Vitals and I&O: Vital Signs Temp 98.8 F 09/03/17 14:00 Pulse 76 09/04/17 08:34 Resp 18 09/04/17 08:13 BP 112/75 09/04/17 08:34 Pulse Ox 98 09/04/17 08:13 Intake & Output 09/03/17 09/04/17 09/04/17 18:59 06:59 18:59 Intake Total 1200 Balance 1200 Intake: Oral 1200 Other: # Bowel Movements 1 Active Medications: Current Medications Acetaminophen (Tylenol) 650 mg PO Q6H PRN PRN Reason: Mild Pain/Headache/T above 101 Stop: 10/22/17 02:33 Last Admin: 09/04/17 08:57 Dose: 650 mg Al Hydrox/Mg Hydrox/Simethicone (Maalox) 30 ml PO Q4HR PRN PRN Reason: GI DISTRESS Stop: 10/22/17 02:36 Albuterol/Ipratropium (Duoneb Neb) 3 ml HHN Q6HRT [facility] Stop: 10/22/17 15:59 Last Admin: 09/04/17 08:13 Dose: Not Given Benztropine Mesylate (Cogentin) 1 mg PO DAILY [facility] Stop: 10/22/17 08:59 Last Admin: 09/04/17 08:31 Dose: 1 mg Carvedilol (Coreg) 6.25 mg PO BID [facility] Stop: 10/22/17 08:59 Last Admin: 09/04/17 08:34 Dose: 6.25 mg Clonazepam (Klonopin) 1 mg PO BID [facility] PRN Reason: Protocol Stop: 10/26/17 16:59 Last Admin: 09/04/17 08:36 Dose: 1 mg Clonazepam (Klonopin) 1 mg PO 1300 [facility] PRN Reason: Protocol Stop: 11/01/17 14:14 Last Admin: 09/03/17 13:11 Dose: 1 mg Duloxetine HCl (Cymbalta) 30 mg PO BID [facility] PRN Reason: Protocol Stop: 10/22/17 08:59 Last Admin: 09/04/17 08:32 Dose: 30 mg Escitalopram Oxalate (Lexapro) 20 mg PO DAILY [facility] PRN Reason: Protocol Stop: 10/22/17 08:59 Last Admin: 09/04/17 08:31 Dose: 20 mg Gabapentin (Neurontin) 300 mg PO TID [facility] Stop: 10/25/17 15:44 Last Admin: 09/04/17 08:31 Dose: 300 mg Guaifenesin/Dextromethorphan (Robitussin Dm) 5 ml PO Q6HR PRN PRN Reason: Cough Stop: 10/22/17 13:37 Hydrocortisone (Hydrocortisone 1%) 1 appl TP BID [facility] Stop: 10/22/17 16:59 Last Admin: 09/04/17 08:46 Dose: 1 appl Hydroxyzine Pamoate (Vistaril) 25 mg PO Q4HR PRN; Protocol PRN Reason: Anxiety Stop: 10/28/17 05:46 Last Admin: 09/04/17 09:58 Dose: 25 mg Insulin Aspart (Novolog Insulin Sliding Scale) 0 units SUBQ ACHS [facility] PRN Reason: Protocol Stop: 10/22/17 16:29 Last Admin: 09/04/17 11:25 Dose: 4 units Levothyroxine Sodium (Synthroid) 0.025 mg PO QDAC [facility] Stop: 10/22/17 07:29 Last Admin: 09/04/17 06:52 Dose: 0.025 mg [place] Carbonate (Eskalith) 300 mg PO TID [facility] PRN Reason: Protocol Stop: 10/22/17 08:59 Last Admin: 09/04/17 08:33 Dose: 300 mg Lorazepam (Ativan) 0.5 mg PO Q4HR PRN; Protocol PRN Reason: Agitation Stop: 10/28/17 05:59 Last Admin: 09/04/17 03:52 Dose: 0.5 mg Miscellaneous (Probiotic Screen) 1 ea MC PRN PRN PRN Reason: PROTOCOL Stop: 10/23/17 16:19 Multivitamins/Vitamin C (Theragran) 1 tab PO DAILY [facility] Stop: 10/22/17 08:59 Last Admin: 09/04/17 08:34 Dose: 1 tab Olanzapine (Zyprexa) 5 mg PO DAILY [facility] PRN Reason: Protocol Stop: 10/27/17 08:59 Last Admin: 09/04/17 08:33 Dose: 5 mg Olanzapine 15 mg/ Olanzapine (10 mg) 25 mg PO DAILY [facility] Stop: 10/30/17 08:59 Last Admin: 09/04/17 08:32 Dose: 25 mg Ondansetron HCl (Zofran Odt) 4 mg PO Q6H PRN PRN Reason: Nausea / Vomiting Stop: 10/22/17 02:33 Pantoprazole Sodium (Protonix) 40 mg PO DAILY [facility] Stop: 10/22/17 08:59 Last Admin: 09/04/17 08:35 Dose: 40 mg Prednisone (Deltasone) 20 mg PO BID [facility] Stop: 10/24/17 16:59 Last Admin: 09/04/17 08:30 Dose: 20 mg General: Alert, Oriented x3, Cooperative, No acute distress HEENT: Atraumatic, PERRLA, EOMI Neck: Supple, +2 carotid pulse wo bruit Cardiovascular: Regular rate, Normal S1, Normal S2 Lungs: Other (diffuse expiratory wheezing.) Abdomen: Bowel sounds, Soft, Other (no hepatosplenomegaly.) Extremities: Other (diffuse osteoarthritic changes present.) Neurological: Other (broad-based gait. Normal speech. Decreased power throughout upper and lower extremity.) Skin: Breakdown Psych/Mental Status: Other (depressed and labile.) Assessment/Plan - Assessment Assessment: COPD exacerbation improving. Diabetes mellitus. Hypothyroidism. Hypertension. DJD. [place]ace[place] is better. High risk for fall. Debility. Decline in self care and mobility. - Plan Plan: Prn oxygen. Hand-held nebulizer. spriva as routine not available patient can use as an out patient. Symptoms management. Medication management. General nursing care. Diabetes management. Psychiatric medication. Psych follow-up. Fall precautions. Chronic disease management. Nutritional Asmnt/Malnutr-PDOC - Dietary Evaluation Malnutrition Findings (Please click <Entered> for more info): Nutritional Asmnt/Malnutrition Start: 08/28/17 12: 51 Text: Status: Complete Freq: Document 08/28/17 12:51 SARAH (Rec: 08/28/17 13:04 JACKIE [id number]) Nutritional Asmnt/Malnutrition Patient General Information Nutritional Screening Moderate Risk Diagnosis psychosis Pertinent Medical Hx/Surgical Hx DM, hypothyroidism, DJD, peripheral neuropathy, COPD Subjective Information Pt seen eating lunch at the time of visit. Pt reported appetite OK, "I am very sick, food helped me feel better, taste good". Pt has no teeth noted, denied chewing or swallowing problem. Per notes, PO intake 100%. Current Diet Order/ Nutrition Support Low sodium 2gm Pertinent Medications novolog, levaquin, synthorid, theragran Pertinent Labs POC 110-356 in last 2 days Nutritional Hx/Data Height 1.83 m Height (Calculated Centimeters) 182.9 Current Weight (lbs) 90.718 kg Weight (Calculated Kilograms) 90.7 Weight (Calculated Grams) 61893.5 [place] Body Weight 178 % [place] Body Weight 112 Body Mass Index (BMI) 27.1 Weight Status Overweight GI Symptoms GI Symptoms None Last BM 08/27 Difficult in: None Skin Integrity/Comment: blackened abrasion to right knee, potential bruise to right eye Current %PO Good (75-100%) Estimated Nutritional Goals Calories/Kcals/Kg 25-30 Kcals Calculated 9964-2854 based on IBW 81kg Protein g/k Protein Calculated 81 Fluid: ml 2024-2430ml (1ml/kcal) Nutritional Problem 1. Problem Problem altered nutrition related lab values Etiology hx of DM Signs/Symptoms: POC 110-356 Malnutrition Alert Protein-Calorie Malnutrition N/A Is there a minimum of two criteria No selected? Query Text:Check all the applicable criteria. A minimum of two criteria are recommended for diagnosis of either severe or non-severe malnutrition. Intervention/Recommendation Comments 1. Recommend adding CCHO-75g diet d/t elevated blood glucose and considering pt wt. 2. Monitor PO intake, wt, labs and skin integrity 3. F/U as moderate risk in -09/02 Expected Outcomes/Goals Expected Outcomes/Goals 1. PO intake continue to meet at least 75% of nutritional needs. 2. Wt stability, skin to remain intact, labs to approach WNL.
--- NOTE | 2017-09-04 21:56 | Progress Notes ---
DATE: SUBJECTIVE: The patient is seen, chart reviewed, discussed with staff today 09/04/2017. The patient remains symptomatic, still restless, anxious, wants to leave the hospital, but also telling nursing staff that he wants to "bang his head against the wall". The patient restless, still depressed, withdrawn, still somewhat attention seeking. He, however, is off 1:1. Denying any overt SI, but he is verbalizing thoughts to hurt himself. ASSESSMENT: The patient remains symptomatic, still not safe for discharge. Still making statements that he wants to hurt himself. PLAN: We will continue to monitor. There is some improvement noted. He is getting more restless being in the hospital. I did set more strict boundaries with him. Will continue Zyprexa at 30 mg. We will continue Klonopin and Ativan. Work on his coping and insight. JOB# [id number]
[2017-09-05] MEDS: Albuterol/Ipratropium Neb 3 ML AERS HHN SCH ×4 (00:35→20:38)
[2017-09-05] MEDS: Levothyroxine 0.025 Mg Tab PO SCH (06:43)
[2017-09-05] MEDS: INSULIN ASPART SLIDING SCALE 100 UNITS/ML UNIT SUBQ SCH ×4 (06:45→21:00)
--- NOTE | 2017-09-05 07:59 | Diagnostic Imaging Report ---
KUB single view HISTORY: Distended abdomen COMPARISON: None FINDINGS: There is massive stool throughout the colon with areas of diffuse fecal impaction. The osseous structures are intact. IMPRESSION: Massive stool throughout the colon with areas of fecal impaction. Findings are likely due to chronic severe constipation. Please correlate clinically.
[2017-09-05] MEDS: Multivitamin Tab PO SCH (08:48)
[2017-09-05] MEDS: Pantoprazole 40 mg EC Tab PO SCH (08:48)
[2017-09-05] MEDS: Benztropine 1 MG TAB PO SCH (08:49)
[2017-09-05] MEDS: OLANZAPINE PO SCH (08:49)
--- NOTE | 2017-09-05 09:25 | General Progress Note ---
Subjective - Review of Systems Subjective: Patient is seen and examined. patient is constipated. Objective - Results Recent Labs: Laboratory Last Values POC Glucose 193 MG/DL (70 - 105) H 09/05/17 06:24 - Physical Exam Vitals and I&O: Vital Signs Temp 98.0 F 09/05/17 05:47 Pulse 78 09/05/17 08:51 Resp 20 09/05/17 05:47 BP 130/71 09/05/17 08:51 Pulse Ox 100 09/05/17 05:47 Intake & Output 09/04/17 09/05/17 09/05/17 18:59 06:59 18:59 Intake Total 1000 Balance 1000 Intake: Oral 1000 Other: # Voids 3 Active Medications: Current Medications Acetaminophen (Tylenol) 650 mg PO Q6H PRN PRN Reason: Mild Pain/Headache/T above 101 Stop: 10/22/17 02:33 Last Admin: 09/05/17 04:53 Dose: 650 mg Al Hydrox/Mg Hydrox/Simethicone (Maalox) 30 ml PO Q4HR PRN PRN Reason: GI DISTRESS Stop: 10/22/17 02:36 Albuterol/Ipratropium (Duoneb Neb) 3 ml HHN Q6HRT SEAN Stop: 10/22/17 15:59 Last Admin: 09/05/17 07:31 Dose: Not Given Benztropine Mesylate (Cogentin) 1 mg PO DAILY SEAN Stop: 10/22/17 08:59 Last Admin: 09/05/17 08:49 Dose: 1 mg Carvedilol (Coreg) 6.25 mg PO BID SEAN Stop: 10/22/17 08:59 Last Admin: 09/05/17 08:51 Dose: 6.25 mg Clonazepam (Klonopin) 1 mg PO BID SEAN PRN Reason: Protocol Stop: 10/26/17 16:59 Last Admin: 09/05/17 08:52 Dose: 1 mg Clonazepam (Klonopin) 1 mg PO 1300 SEAN PRN Reason: Protocol Stop: 11/01/17 14:14 Last Admin: 09/04/17 12:36 Dose: 1 mg Duloxetine HCl (Cymbalta) 30 mg PO BID SEAN PRN Reason: Protocol Stop: 10/22/17 08:59 Last Admin: 09/05/17 08:48 Dose: 30 mg Escitalopram Oxalate (Lexapro) 20 mg PO DAILY SEAN PRN Reason: Protocol Stop: 10/22/17 08:59 Last Admin: 09/05/17 08:51 Dose: 20 mg Gabapentin (Neurontin) 300 mg PO TID SEAN Stop: 10/25/17 15:44 Last Admin: 09/05/17 08:48 Dose: 300 mg Guaifenesin/Dextromethorphan (Robitussin Dm) 5 ml PO Q6HR PRN PRN Reason: Cough Stop: 10/22/17 13:37 Hydrocortisone (Hydrocortisone 1%) 1 appl TP BID SEAN Stop: 10/22/17 16:59 Last Admin: 09/04/17 16:14 Dose: 1 appl Hydroxyzine Pamoate (Vistaril) 25 mg PO Q4HR PRN; Protocol PRN Reason: Anxiety Stop: 10/28/17 05:46 Last Admin: 09/04/17 09:58 Dose: 25 mg Insulin Aspart (Novolog Insulin Sliding Scale) 0 units SUBQ ACHS SEAN PRN Reason: Protocol Stop: 10/22/17 16:29 Last Admin: 09/05/17 06:45 Dose: 2 units Levothyroxine Sodium (Synthroid) 0.025 mg PO QDAC SEAN Stop: 10/22/17 07:29 Last Admin: 09/05/17 06:43 Dose: 0.025 mg [place] Carbonate (Eskalith) 300 mg PO TID SEAN PRN Reason: Protocol Stop: 10/22/17 08:59 Last Admin: 09/05/17 08:48 Dose: 300 mg Lorazepam (Ativan) 0.5 mg PO Q4HR PRN; Protocol PRN Reason: Agitation Stop: 10/28/17 05:59 Last Admin: 09/04/17 03:52 Dose: 0.5 mg Miscellaneous (Probiotic Screen) 1 ea MC PRN PRN PRN Reason: PROTOCOL Stop: 10/23/17 16:19 Multivitamins/Vitamin C (Theragran) 1 tab PO DAILY SEAN Stop: 10/22/17 08:59 Last Admin: 09/05/17 08:48 Dose: 1 tab Olanzapine (Zyprexa) 5 mg PO DAILY SEAN PRN Reason: Protocol Stop: 10/27/17 08:59 Last Admin: 09/05/17 08:48 Dose: 5 mg Olanzapine 15 mg/ Olanzapine (10 mg) 25 mg PO DAILY [facility] Stop: 10/30/17 08:59 Last Admin: 09/05/17 08:49 Dose: 25 mg Ondansetron HCl (Zofran Odt) 4 mg PO Q6H PRN PRN Reason: Nausea / Vomiting Stop: 10/22/17 02:33 Pantoprazole Sodium (Protonix) 40 mg PO DAILY [facility] Stop: 10/22/17 08:59 Last Admin: 09/05/17 08:48 Dose: 40 mg Prednisone (Deltasone) 20 mg PO BID [facility] Stop: 10/24/17 16:59 Last Admin: 09/05/17 08:50 Dose: 20 mg General: Alert, Oriented x3, Cooperative, No acute distress HEENT: Atraumatic, PERRLA, EOMI Neck: Supple, +2 carotid pulse wo bruit Cardiovascular: Regular rate, Normal S1, Normal S2 Lungs: Other (diffuse expiratory wheezing.) Abdomen: Bowel sounds, Soft, Other (no hepatosplenomegaly.) Extremities: Other (diffuse osteoarthritic changes present.) Neurological: Other (broad-based gait. Normal speech. Decreased power throughout upper and lower extremity.) Skin: Breakdown Psych/Mental Status: Other (depressed and labile.) Assessment/Plan - Assessment Assessment: COPD exacerbation improving. Diabetes mellitus. Hypothyroidism. Hypertension. DJD. Rosaceia is better. High risk for fall. Debility. Decline in self care and mobility. - Plan Plan: Prn oxygen. Hand-held nebulizer. spriva as routine not available patient can use as an out patient. Symptoms management. Medication management. General nursing care. Diabetes management. Psychiatric medication. Psych follow-up. Fall precautions. Chronic disease management. Nutritional Asmnt/Malnutr-PDOC - Dietary Evaluation Malnutrition Findings (Please click <Entered> for more info): Nutritional Asmnt/Malnutrition Start: 08/28/17 12: 51 Text: Status: Complete Freq: Document 08/28/17 12:51 SARAH (Rec: 08/28/17 13:04 JACKIE [email or web address]) Nutritional Asmnt/Malnutrition Patient General Information Nutritional Screening Moderate Risk Diagnosis psychosis Pertinent Medical Hx/Surgical Hx DM, hypothyroidism, DJD, peripheral neuropathy, COPD Subjective Information Pt seen eating lunch at the time of visit. Pt reported appetite OK, "I am very sick, food helped me feel better, taste good". Pt has no teeth noted, denied chewing or swallowing problem. Per notes, PO intake 100%. Current Diet Order/ Nutrition Support Low sodium 2gm Pertinent Medications novolog, levaquin, synthorid, theragran Pertinent Labs POC 110-356 in last 2 days Nutritional Hx/Data Height 1.83 m Height (Calculated Centimeters) 182.9 Current Weight (lbs) 90.718 kg Weight (Calculated Kilograms) 90.7 Weight (Calculated Grams) 64805.5 [place] Body Weight 178 % [place] Body Weight 112 Body Mass Index (BMI) 27.1 Weight Status Overweight GI Symptoms GI Symptoms None Last BM 08/27 Difficult in: None Skin Integrity/Comment: blackened abrasion to right knee, potential bruise to right eye Current %PO Good (75-100%) Estimated Nutritional Goals Calories/Kcals/Kg 25-30 Kcals Calculated 1826-7823 based on IBW 81kg Protein g/k Protein Calculated 81 Fluid: ml 2024-2430ml (1ml/kcal) Nutritional Problem 1. Problem Problem altered nutrition related lab values Etiology hx of DM Signs/Symptoms: POC 110-356 Malnutrition Alert Protein-Calorie Malnutrition N/A Is there a minimum of two criteria No selected? Query Text:Check all the applicable criteria. A minimum of two criteria are recommended for diagnosis of either severe or non-severe malnutrition. Intervention/Recommendation Comments 1. Recommend adding CCHO-75g diet d/t elevated blood glucose and considering pt wt. 2. Monitor PO intake, wt, labs and skin integrity 3. F/U as moderate risk in -09/02 Expected Outcomes/Goals Expected Outcomes/Goals 1. PO intake continue to meet at least 75% of nutritional needs. 2. Wt stability, skin to remain intact, labs to approach WNL.
[2017-09-05] MEDS ORDERED: Fleet Enema 135 mL RC ONE (13:31)
[2017-09-05] MEDS: Lactulose 10 Gm/15 mL 30mL UDC PO SCH (16:44)
[2017-09-06] MEDS: Albuterol/Ipratropium Neb 3 ML AERS HHN SCH ×4 (00:48→20:45)
[2017-09-06] MEDS: Levothyroxine 0.025 Mg Tab PO SCH (06:37)
[2017-09-06] MEDS: INSULIN ASPART SLIDING SCALE 100 UNITS/ML UNIT SUBQ SCH ×4 (06:38→21:16)
[2017-09-06] MEDS: Lactulose 10 Gm/15 mL 30mL UDC PO SCH ×2 (09:22→16:46)
[2017-09-06] MEDS: Multivitamin Tab PO SCH (09:23)
[2017-09-06] MEDS: Benztropine 1 MG TAB PO SCH (09:23)
[2017-09-06] MEDS: OLANZAPINE PO SCH (09:23)
[2017-09-06] MEDS: Pantoprazole 40 mg EC Tab PO SCH (09:24)
[2017-09-06] MEDS ORDERED: Magnesium Citrate 1.75 GM/300 mL Bottle PO ONE (17:51)
--- NOTE | 2017-09-06 18:08 | General Progress Note ---
Subjective - Review of Systems Subjective: Patient is seen and examined. patient is still constipated. Breathing is better. Objective - Results Recent Labs: Laboratory Last Values POC Glucose 352 MG/DL (70 - 105) H 09/06/17 16:16 - Physical Exam Vitals and I&O: Vital Signs Temp 98.2 F 09/06/17 14:22 Pulse 78 09/06/17 16:47 Resp 19 09/06/17 14:22 BP 134/85 09/06/17 16:47 Pulse Ox 94 09/06/17 14:22 Intake & Output 09/05/17 09/06/17 09/06/17 18:59 06:59 18:59 Intake Total 1000 Balance 1000 Intake: Oral 1000 Other: # Voids 3 # Bowel Movements 1 Active Medications: Current Medications Acetaminophen (Tylenol) 650 mg PO Q6H PRN PRN Reason: Mild Pain/Headache/T above 101 Stop: 10/22/17 02:33 Last Admin: 09/06/17 04:42 Dose: 650 mg Al Hydrox/Mg Hydrox/Simethicone (Maalox) 30 ml PO Q4HR PRN PRN Reason: GI DISTRESS Stop: 10/22/17 02:36 Albuterol/Ipratropium (Duoneb Neb) 3 ml HHN Q6HRT SEAN Stop: 10/22/17 15:59 Last Admin: 09/06/17 13:14 Dose: 3 ml Benztropine Mesylate (Cogentin) 1 mg PO DAILY [facility] Stop: 10/22/17 08:59 Last Admin: 09/06/17 09:23 Dose: 1 mg Carvedilol (Coreg) 6.25 mg PO BID SEAN Stop: 10/22/17 08:59 Last Admin: 09/06/17 16:47 Dose: 6.25 mg Clonazepam (Klonopin) 1 mg PO BID SEAN PRN Reason: Protocol Stop: 10/26/17 16:59 Last Admin: 09/06/17 16:46 Dose: 1 mg Clonazepam (Klonopin) 1 mg PO 1300 SEAN PRN Reason: Protocol Stop: 11/01/17 14:14 Last Admin: 09/06/17 12:15 Dose: 1 mg Duloxetine HCl (Cymbalta) 30 mg PO BID SEAN PRN Reason: Protocol Stop: 10/22/17 08:59 Last Admin: 09/06/17 16:46 Dose: 30 mg Escitalopram Oxalate (Lexapro) 10 mg PO DAILY SEAN PRN Reason: Protocol Stop: 11/05/17 12:41 Gabapentin (Neurontin) 300 mg PO TID SEAN Stop: 10/25/17 15:44 Last Admin: 09/06/17 13:53 Dose: 300 mg Guaifenesin/Dextromethorphan (Robitussin Dm) 5 ml PO Q6HR PRN PRN Reason: Cough Stop: 10/22/17 13:37 Hydrocortisone (Hydrocortisone 1%) 1 appl TP BID SEAN Stop: 10/22/17 16:59 Last Admin: 09/06/17 16:50 Dose: 1 appl Hydroxyzine Pamoate (Vistaril) 25 mg PO Q4HR PRN; Protocol PRN Reason: Anxiety Stop: 10/28/17 05:46 Last Admin: 09/04/17 09:58 Dose: 25 mg Insulin Aspart (Novolog Insulin Sliding Scale) 0 units SUBQ ACHS SEAN PRN Reason: Protocol Stop: 10/22/17 16:29 Last Admin: 09/06/17 16:50 Dose: 10 units Lactulose (Cephulac) 30 gm PO BID SEAN Stop: 11/04/17 16:59 Last Admin: 09/06/17 16:46 Dose: 30 gm Levothyroxine Sodium (Synthroid) 0.025 mg PO QDAC SEAN Stop: 10/22/17 07:29 Last Admin: 09/06/17 06:37 Dose: 0.025 mg [place] Carbonate (Eskalith) 300 mg PO TID SEAN PRN Reason: Protocol Stop: 10/22/17 08:59 Last Admin: 09/06/17 13:53 Dose: 300 mg Lorazepam (Ativan) 0.5 mg PO Q4HR PRN; Protocol PRN Reason: Agitation Stop: 10/28/17 05:59 Last Admin: 09/06/17 04:42 Dose: 0.5 mg Miscellaneous (Probiotic Screen) 1 ea MC PRN PRN PRN Reason: PROTOCOL Stop: 10/23/17 16:19 Multivitamins/Vitamin C (Theragran) 1 tab PO DAILY SEAN Stop: 10/22/17 08:59 Last Admin: 09/06/17 09:23 Dose: 1 tab Olanzapine (Zyprexa) 5 mg PO DAILY [facility] PRN Reason: Protocol Stop: 10/27/17 08:59 Last Admin: 09/06/17 09:23 Dose: 5 mg Olanzapine 15 mg/ Olanzapine (10 mg) 25 mg PO DAILY [facility] Stop: 10/30/17 08:59 Last Admin: 09/06/17 09:23 Dose: 25 mg Ondansetron HCl (Zofran Odt) 4 mg PO Q6H PRN PRN Reason: Nausea / Vomiting Stop: 10/22/17 02:33 Pantoprazole Sodium (Protonix) 40 mg PO DAILY [facility] Stop: 10/22/17 08:59 Last Admin: 09/06/17 09:24 Dose: 40 mg Prednisone (Deltasone) 20 mg PO BID [facility] Stop: 10/24/17 16:59 Last Admin: 09/06/17 16:46 Dose: 20 mg General: Alert, Oriented x3, Cooperative, No acute distress HEENT: Atraumatic, PERRLA, EOMI Neck: Supple, +2 carotid pulse wo bruit Cardiovascular: Regular rate, Normal S1, Normal S2 Lungs: Other (diffuse expiratory wheezing.) Abdomen: Bowel sounds, Soft, Other (no hepatosplenomegaly.) Extremities: Other (diffuse osteoarthritic changes present.) Neurological: Other (broad-based gait. Normal speech. Decreased power throughout upper and lower extremity.) Skin: Breakdown Psych/Mental Status: Other (depressed and labile.) Assessment/Plan - Assessment Assessment: COPD exacerbation improving. Diabetes mellitus. Hypothyroidism. Hypertension. DJD. Constipation. Rosaceia is better. High risk for fall. Debility. Decline in self care and mobility. - Plan Plan: Prn oxygen. Hand-held nebulizer. Mag citrate now. Anti constipation meds. Symptoms management. Medication management. General nursing care. Diabetes management. Psychiatric medication. Psych follow-up. Fall precautions. Chronic disease management. Nutritional Asmnt/Malnutr-PDOC - Dietary Evaluation Malnutrition Findings (Please click <Entered> for more info): Nutritional Asmnt/Malnutrition Start: 08/28/17 12: 51 Text: Status: Complete Freq: Document 08/28/17 12:51 SARAH (Rec: 08/28/17 13:04 JACKIE [email or web address]) Nutritional Asmnt/Malnutrition Patient General Information Nutritional Screening Moderate Risk Diagnosis psychosis Pertinent Medical Hx/Surgical Hx DM, hypothyroidism, DJD, peripheral neuropathy, COPD Subjective Information Pt seen eating lunch at the time of visit. Pt reported appetite OK, "I am very sick, food helped me feel better, taste good". Pt has no teeth noted, denied chewing or swallowing problem. Per notes, PO intake 100%. Current Diet Order/ Nutrition Support Low sodium 2gm Pertinent Medications novolog, levaquin, synthorid, theragran Pertinent Labs POC 110-356 in last 2 days Nutritional Hx/Data Height 1.83 m Height (Calculated Centimeters) 182.9 Current Weight (lbs) 90.718 kg Weight (Calculated Kilograms) 90.7 Weight (Calculated Grams) 71325.5 [place] Body Weight 178 % [place] Body Weight 112 Body Mass Index (BMI) 27.1 Weight Status Overweight GI Symptoms GI Symptoms None Last BM 08/27 Difficult in: None Skin Integrity/Comment: blackened abrasion to right knee, potential bruise to right eye Current %PO Good (75-100%) Estimated Nutritional Goals Calories/Kcals/Kg 25-30 Kcals Calculated 3520-0782 based on IBW 81kg Protein g/k Protein Calculated 81 Fluid: ml 2024-2430ml (1ml/kcal) Nutritional Problem 1. Problem Problem altered nutrition related lab values Etiology hx of DM Signs/Symptoms: POC 110-356 Malnutrition Alert Protein-Calorie Malnutrition N/A Is there a minimum of two criteria No selected? Query Text:Check all the applicable criteria. A minimum of two criteria are recommended for diagnosis of either severe or non-severe malnutrition. Intervention/Recommendation Comments 1. Recommend adding CCHO-75g diet d/t elevated blood glucose and considering pt wt. 2. Monitor PO intake, wt, labs and skin integrity 3. F/U as moderate risk in -09/02 Expected Outcomes/Goals Expected Outcomes/Goals 1. PO intake continue to meet at least 75% of nutritional needs. 2. Wt stability, skin to remain intact, labs to approach WNL.
[2017-09-07] MEDS: Albuterol/Ipratropium Neb 3 ML AERS HHN SCH ×4 (00:03→19:13)
--- NOTE | 2017-09-07 00:40 | Progress Notes ---
DATE: 09/05/2017 SUBJECTIVE: The patient remains symptomatic, highly anxious, restless, wanting to leave the hospital, but still making statements that he wants to hurt himself, still depressed, withdrawn, still somewhat attention seeking, but after one to one, no events. He seems calmer, more oriented, less distracted, seems to be tolerant to medications, no side effects, no EPS, no over sedation. ASSESSMENT: The patient remains symptomatic, still impulsive, unpredictable. He has attempted to hurt himself in the [place] and confined to the hospital. PLAN: We will continue to monitor, improvement noted. We do need to confirm placement. Continue Klonopin and Ativan. We will renew. JOB# [id number]
[2017-09-07] MEDS ORDERED: Magnesium Citrate 1.75 GM/300 mL Bottle PO ONE (01:06)
[2017-09-07] MEDS: Levothyroxine 0.025 Mg Tab PO SCH (06:57)
[2017-09-07] MEDS: INSULIN ASPART SLIDING SCALE 100 UNITS/ML UNIT SUBQ SCH ×4 (06:59→21:34)
[2017-09-07] MEDS: Lactulose 10 Gm/15 mL 30mL UDC PO SCH ×2 (08:56→16:37)
[2017-09-07] MEDS: OLANZAPINE PO SCH (08:57)
[2017-09-07] MEDS: Pantoprazole 40 mg EC Tab PO SCH (08:57)
[2017-09-07] MEDS: Benztropine 1 MG TAB PO SCH (08:58)
[2017-09-07] MEDS: Multivitamin Tab PO SCH (08:58)
--- NOTE | 2017-09-07 14:24 | General Progress Note ---
Subjective - Review of Systems Subjective: Patient is seen and examined. Patient had large BM but abdomen is still distended. Breathing is better. Objective - Results Recent Labs: Laboratory Last Values POC Glucose 175 MG/DL (70 - 105) H 09/07/17 11:31 - Physical Exam Vitals and I&O: Vital Signs Temp 98.8 F 09/07/17 06:07 Pulse 92 09/07/17 13:29 Resp 22 09/07/17 13:29 BP 119/62 09/07/17 06:07 Pulse Ox 93 09/07/17 13:29 Intake & Output 09/06/17 09/07/17 09/07/17 18:59 06:59 18:59 Intake Total 1500 120 Balance 1500 120 Intake: Oral 1500 120 Other: # Voids 3 1 Active Medications: Current Medications Acetaminophen (Tylenol) 650 mg PO Q6H PRN PRN Reason: Mild Pain/Headache/T above 101 Stop: 10/22/17 02:33 Last Admin: 09/07/17 04:24 Dose: 650 mg Al Hydrox/Mg Hydrox/Simethicone (Maalox) 30 ml PO Q4HR PRN PRN Reason: GI DISTRESS Stop: 10/22/17 02:36 Albuterol/Ipratropium (Duoneb Neb) 3 ml HHN Q6HRT SEAN Stop: 10/22/17 15:59 Last Admin: 09/07/17 13:29 Dose: 3 ml Benztropine Mesylate (Cogentin) 1 mg PO DAILY [facility] Stop: 10/22/17 08:59 Last Admin: 09/07/17 08:58 Dose: 1 mg Carvedilol (Coreg) 6.25 mg PO BID SEAN Stop: 10/22/17 08:59 Last Admin: 09/07/17 08:58 Dose: Not Given Clonazepam (Klonopin) 1 mg PO BID SEAN PRN Reason: Protocol Stop: 10/26/17 16:59 Last Admin: 09/07/17 08:59 Dose: 1 mg Clonazepam (Klonopin) 1 mg PO 1300 SEAN PRN Reason: Protocol Stop: 11/01/17 14:14 Last Admin: 09/07/17 13:22 Dose: 1 mg Duloxetine HCl (Cymbalta) 30 mg PO BID SEAN PRN Reason: Protocol Stop: 10/22/17 08:59 Last Admin: 09/07/17 08:57 Dose: 30 mg Escitalopram Oxalate (Lexapro) 10 mg PO DAILY [facility] PRN Reason: Protocol Stop: 11/05/17 12:41 Last Admin: 09/07/17 08:58 Dose: 10 mg Gabapentin (Neurontin) 300 mg PO TID SEAN Stop: 10/25/17 15:44 Last Admin: 09/07/17 13:22 Dose: 300 mg Guaifenesin/Dextromethorphan (Robitussin Dm) 5 ml PO Q6HR PRN PRN Reason: Cough Stop: 10/22/17 13:37 Hydrocortisone (Hydrocortisone 1%) 1 appl TP BID SEAN Stop: 10/22/17 16:59 Last Admin: 09/07/17 08:58 Dose: 1 appl Hydroxyzine Pamoate (Vistaril) 25 mg PO Q4HR PRN; Protocol PRN Reason: Anxiety Stop: 10/28/17 05:46 Last Admin: 09/04/17 09:58 Dose: 25 mg Insulin Aspart (Novolog Insulin Sliding Scale) 0 units SUBQ ACHS SEAN PRN Reason: Protocol Stop: 10/22/17 16:29 Last Admin: 09/07/17 12:08 Dose: 2 units Lactulose (Cephulac) 30 gm PO BID SEAN Stop: 11/04/17 16:59 Last Admin: 09/07/17 08:56 Dose: 30 gm Levothyroxine Sodium (Synthroid) 0.025 mg PO QDAC SEAN Stop: 10/22/17 07:29 Last Admin: 09/07/17 06:57 Dose: 0.025 mg [place] Carbonate (Eskalith) 300 mg PO TID SEAN PRN Reason: Protocol Stop: 10/22/17 08:59 Last Admin: 09/07/17 13:22 Dose: 300 mg Lorazepam (Ativan) 0.5 mg PO Q4HR PRN; Protocol PRN Reason: Agitation Stop: 10/28/17 05:59 Last Admin: 09/06/17 04:42 Dose: 0.5 mg Miscellaneous (Probiotic Screen) 1 ea MC PRN PRN PRN Reason: PROTOCOL Stop: 10/23/17 16:19 Multivitamins/Vitamin C (Theragran) 1 tab PO DAILY SEAN Stop: 10/22/17 08:59 Last Admin: 09/07/17 08:58 Dose: 1 tab Olanzapine (Zyprexa) 5 mg PO DAILY [facility] PRN Reason: Protocol Stop: 10/27/17 08:59 Last Admin: 09/07/17 08:58 Dose: 5 mg Olanzapine 15 mg/ Olanzapine (10 mg) 25 mg PO DAILY [facility] Stop: 10/30/17 08:59 Last Admin: 09/07/17 08:57 Dose: 25 mg Ondansetron HCl (Zofran Odt) 4 mg PO Q6H PRN PRN Reason: Nausea / Vomiting Stop: 10/22/17 02:33 Pantoprazole Sodium (Protonix) 40 mg PO DAILY [facility] Stop: 10/22/17 08:59 Last Admin: 09/07/17 08:57 Dose: 40 mg Prednisone (Deltasone) 20 mg PO BID [facility] Stop: 10/24/17 16:59 Last Admin: 09/07/17 08:57 Dose: 20 mg General: Alert, Oriented x3, Cooperative, No acute distress HEENT: Atraumatic, PERRLA, EOMI Neck: Supple, +2 carotid pulse wo bruit Cardiovascular: Regular rate, Normal S1, Normal S2 Lungs: Other (diffuse expiratory wheezing.) Abdomen: Bowel sounds, Soft, Distended (Bowel sound presant.), Other (NO HSmegaly.) Extremities: Other (diffuse osteoarthritic changes present.) Neurological: Other (broad-based gait. Normal speech. Decreased power throughout upper and lower extremity.) Skin: Breakdown Psych/Mental Status: Other (depressed and labile.) Assessment/Plan - Assessment Assessment: COPD exacerbation improving. Diabetes mellitus. Hypothyroidism. Hypertension. DJD. Abdominal distension. Constipation. [place] is better. High risk for fall. Debility. Decline in self care and mobility. - Plan Plan: Prn oxygen. Hand-held nebulizer. CT abd and pelvis today. CBC and CMP today. Anti constipation meds. Symptoms management. Medication management. General nursing care. Diabetes management. Psychiatric medication. Psych follow-up. Fall precautions. Chronic disease management. Discussed with staff. Nutritional Asmnt/Malnutr-PDOC - Dietary Evaluation Malnutrition Findings (Please click <Entered> for more info): Nutritional Asmnt/Malnutrition Start: 08/28/17 12: 51 Text: Status: Complete Freq: Document 08/28/17 12:51 LCHENG (Rec: 08/28/17 13:04 [facility] [email or web address]) Nutritional Asmnt/Malnutrition Patient General Information Nutritional Screening Moderate Risk Diagnosis psychosis Pertinent Medical Hx/Surgical Hx DM, hypothyroidism, DJD, peripheral neuropathy, COPD Subjective Information Pt seen eating lunch at the time of visit. Pt reported appetite OK, "I am very sick, food helped me feel better, taste good". Pt has no teeth noted, denied chewing or swallowing problem. Per notes, PO intake 100%. Current Diet Order/ Nutrition Support Low sodium 2gm Pertinent Medications novolog, levaquin, synthorid, theragran Pertinent Labs POC 110-356 in last 2 days Nutritional Hx/Data Height 1.83 m Height (Calculated Centimeters) 182.9 Current Weight (lbs) 90.718 kg Weight (Calculated Kilograms) 90.7 Weight (Calculated Grams) 60325.5 [place] Body Weight 178 % [place] Body Weight 112 Body Mass Index (BMI) 27.1 Weight Status Overweight GI Symptoms GI Symptoms None Last BM 08/27 Difficult in: None Skin Integrity/Comment: blackened abrasion to right knee, potential bruise to right eye Current %PO Good (75-100%) Estimated Nutritional Goals Calories/Kcals/Kg 25-30 Kcals Calculated 5223-8755 based on IBW 81kg Protein g/k Protein Calculated 81 Fluid: ml 2024-2430ml (1ml/kcal) Nutritional Problem 1. Problem Problem altered nutrition related lab values Etiology hx of DM Signs/Symptoms: POC 110-356 Malnutrition Alert Protein-Calorie Malnutrition N/A Is there a minimum of two criteria No selected? Query Text:Check all the applicable criteria. A minimum of two criteria are recommended for diagnosis of either severe or non-severe malnutrition. Intervention/Recommendation Comments 1. Recommend adding CCHO-75g diet d/t elevated blood glucose and considering pt wt. 2. Monitor PO intake, wt, labs and skin integrity 3. F/U as moderate risk in -09/02 Expected Outcomes/Goals Expected Outcomes/Goals 1. PO intake continue to meet at least 75% of nutritional needs. 2. Wt stability, skin to remain intact, labs to approach WNL.
[2017-09-07 14:52] LABS: MANUAL DIFF REQUIRED? YES
[2017-09-07 14:55] LABS: HEMATOCRIT 40.4 % (41.0-60); HEMOGLOBIN 13.4 gm/dL (12-16); MEAN CELL VOLUME 88.1 fl (80-99); MEAN CORPUSCULAR HEMOGLOBIN 29.2 pg (27.0-31.0); MEAN CORPUSCULAR HGB CONC 33.1 pg (28.0-36.0); MEAN PLATELET VOLUME 7.3 fl; PLATELET COUNT 327 Th/cmm (150-400); RED BLOOD COUNT 4.58 Mil/cmm (3.80-5.80); RED CELL DISTRIBUTION WIDTH 13.8 % (11.5-20.0)
[2017-09-07 15:06] LABS: WHITE BLOOD COUNT 21.6 Th/cmm (4.8-10.8)
[2017-09-07 15:16] LABS: ALB/GLOB RATIO 1.3 (1.0-1.8); ALBUMIN 4.1 gm/dL (4.2-5.5); ALKALINE PHOSPHATASE 127 U/L (34-104); ANION GAP 10.8 (7.0-16.0); BILIRUBIN,TOTAL 0.5 mg/dL (0.3-1.0); BUN - UREA NITROGEN 24 mg/dL (7-25); CALCIUM SERUM 9.7 mg/dL (8.6-10.3); CHLORIDE 98 mEq/L (98-107); CREATININE - SERUM 0.8 mg/dL (0.7-1.3); GFR AFRICAN-AMERICAN > 60.0 ml/min (>90); GFR NON AFRICAN-AMERICAN > 60.0 ml/min; GLUCOSE 258 mg/dL (70-105); POTASSIUM SERUM 4.8 mEq/L (3.5-5.1); SGOT 18 U/L (13-39); SGPT/ALT 29 U/L (7-52); SODIUM SERUM 134 mEq/L (136-145); TOTAL PROTEIN,SERUM 7.3 gm/dL (6.0-8.3)
[2017-09-07 15:56] LABS: BAND NEUTROPHILE 8 % (0-10); LYMPHOCYTE 8 % (20-50); MONOCYTE 2 % (2-10); NEUTROPHILS 82 % (40-80); PLATELET ESTIMATE ADEQUATE (NORMAL); TOTAL CELLS COUNTED 100
[2017-09-07 15:57] LABS: PLATELET MORPHOLOGY PLATELET CLUMPS SEEN (NORMAL)
--- NOTE | 2017-09-07 21:08 | Progress Notes ---
DATE: SUBJECTIVE: The patient was seen and evaluated. The patient's chart reviewed. This is Dr. Ramos covering for Dr. Farias. Overnight nursing report this morning, the patient continues to be perseverating and attempted to bang his head in the wall, so he was taken to the seclusion and went redirectable. Today on [id number] evaluation, the patient presents very tearful and very anxious and paranoid about being discharged, but when attempting to discuss, engage in a linear conversation, himself, becomes more irritable, more agitated. MENTAL STATUS EXAMINATION: Irritable, agitated, distraught, psychological turmoil. ASSESSMENT AND PLAN: The patient is a 67-year-old male who continues to be very distraught, overwhelmed. Will continue with primary psychiatry treatment plan and goals. The patient has still self-injurious behavior such as attempting to hit himself in the wall. He is unable to formulate a safe plan. JOB# [id number]
[2017-09-08] MEDS ORDERED: Albuterol/Ipratropium Neb 3 ML AERS HHN ONE ×2 (00:56→07:05)
[2017-09-08] MEDS: Albuterol/Ipratropium Neb 3 ML AERS HHN SCH ×4 (01:17→19:45)
[2017-09-08] MEDS: INSULIN ASPART SLIDING SCALE 100 UNITS/ML UNIT SUBQ SCH ×3 (06:49→21:28)
[2017-09-08] MEDS: Levothyroxine 0.025 Mg Tab PO SCH (06:50)
[2017-09-08] MEDS: Benztropine 1 MG TAB PO SCH (09:06)
[2017-09-08] MEDS: Lactulose 10 Gm/15 mL 30mL UDC PO SCH ×2 (09:07→16:22)
[2017-09-08] MEDS: Multivitamin Tab PO SCH (09:08)
[2017-09-08] MEDS: OLANZAPINE PO SCH (09:08)
[2017-09-08] MEDS: Pantoprazole 40 mg EC Tab PO SCH (09:08)
--- NOTE | 2017-09-08 09:21 | Progress Notes ---
DATE: 09/06/2017 PSYCHIATRIC FOLLOWUP NOTE COVERING FOR: Dr. Farias. IDENTIFYING DATA: The patient is a 67-year-old male who initially brought in here for the patient presented very restless and suicidal and reporting to end and wanting to hurt himself. Today, on [id number] evaluation, the patient continuously presents very anxious wanting to leave the hospital, which the nursing staff reported attempted to bang his head against the wall . Today, provided a lot of provided a lot of breathing techniques to reduce his anxiety that he is expressing. He denies any suicidal ideation, but there is still a lot of that needs to the patient. ASSESSMENT AND PLAN: The patient is a 67-year-old male with depression, still shows very poor ability to engaging in motion and find himself at times with him. In the meantime, we will continue with the current medications regimens as I recently been adjusted, which includes Coreg, olanzapine 1 mg p.o. b.i.d. for overall anxiety Cymbalta 60 mg a day and Lexapro 20 mg. We will continue antidepressant at this point; unclear which medication is being another. He denies any side effects of the medications, but we will continue titrating one of the antidepressants, the Lexapro in the near future to avoid any serotonin syndrome age related. We will continue with the [place] 300 mg p.o. t.i.d. and olanzapine still restlessness, psychoactivity exacerbates the patient ____ safe environment at this time. JOB# [id number]
--- NOTE | 2017-09-08 09:36 | General Progress Note ---
Subjective - Review of Systems Subjective: Patient is seen and examined. CT abdomen and pelvis not done. Breathing is better. Objective - Results Result Diagrams: 09/07/17 14:27 09/07/17 14:27 Recent Labs: Laboratory Last Values WBC 21.6 Th/cmm (4.8-10.8) H* 09/07/17 14: RBC 4.58 Mil/cmm (3.80-5.80) 09/07/17 14:27 Hgb 13.4 gm/dL (12-16) 09/07/17 14:27 Hct 40.4 % (41.0-60) L 09/07/17 14: MCV 88.1 fl (80-99) 09/07/17 14: MCH 29.2 pg (27.0-31.0) 09/07/17 14: MCHC Differential 33.1 pg (28.0-36.0) 09/07/17 14: RDW 13.8 % (11.5-20.0) 09/07/17 14: Plt Count 327 Th/cmm (150-400) 09/07/17 14:27 MPV 7.3 fl 09/07/17 14:27 Band Neutrophils % 8 % (0-10) 09/07/17 14: Neutrophils (Manual) 82 % (40-80) H 09/07/17 14: Lymphocytes 8 % (20-50) L 09/07/17 14: Monocytes 2 % (2-10) 09/07/17 14:27 Platelet Estimate ADEQUATE (NORMAL) 09/07/17 14: Platelet Morphology PLATELET CLUMPS SEEN (NORMAL) 09/07/17 14:27 RBC Morph Micro Appear NORMAL (NORMAL) 09/07/17 14:27 Sodium 134 mEq/L (136-145) L 09/07/17 14:27 Potassium 4.8 mEq/L (3.5-5.1) 09/07/17 14:27 Chloride 98 mEq/L (98-107) 09/07/17 14:27 Carbon Dioxide 30.0 mEq/L (21.0-31.0) 09/07/17 14:27 Anion Gap 10.8 (7.0-16.0) 09/07/17 14:27 BUN 24 mg/dL (7-25) 09/07/17 14:27 Creatinine 0.8 mg/dL (0.7-1.3) 09/07/17 14:27 Est GFR ( Amer) > 60.0 ml/min (>90) 09/07/17 14:27 Est GFR (Non-Af Amer) > 60.0 ml/min 09/07/17 14:27 BUN/Creatinine Ratio 30.0 09/07/17 14:27 Glucose 258 mg/dL (70-105) H 09/07/17 14:27 POC Glucose 123 MG/DL (70 - 105) H 09/08/17 06:46 Calcium 9.7 mg/dL (8.6-10.3) 09/07/17 14:27 Total Bilirubin 0.5 mg/dL (0.3-1.0) 09/07/17 14:27 AST 18 U/L (13-39) 09/07/17 14:27 ALT 29 U/L (7-52) 09/07/17 14:27 Alkaline Phosphatase 127 U/L (34-104) H 09/07/17 14:27 Total Protein 7.3 gm/dL (6.0-8.3) 09/07/17 14:27 Albumin 4.1 gm/dL (4.2-5.5) L 09/07/17 14:27 Globulin 3.2 gm/dL 09/07/17 14:27 Albumin/Globulin Ratio 1.3 (1.0-1.8) 09/07/17 14:27 - Physical Exam Vitals and I&O: Vital Signs Temp 98.6 F 09/08/17 06:50 Pulse 89 09/08/17 07:12 Resp 20 09/08/17 07:14 BP 123/69 09/08/17 06:50 Pulse Ox 93 09/08/17 07:12 Intake & Output 09/07/17 09/08/17 09/08/17 18:59 06:59 18:59 Intake Total 1200 Balance 1200 Intake: Oral 1200 Other: # Voids 3 # Bowel Movements 1 Active Medications: Current Medications Acetaminophen (Tylenol) 650 mg PO Q6H PRN PRN Reason: Mild Pain/Headache/T above 101 Stop: 10/22/17 02:33 Last Admin: 09/08/17 01:24 Dose: 650 mg Al Hydrox/Mg Hydrox/Simethicone (Maalox) 30 ml PO Q4HR PRN PRN Reason: GI DISTRESS Stop: 10/22/17 02:36 Albuterol/Ipratropium (Duoneb Neb) 3 ml HHN Q6HRT SEAN Stop: 10/22/17 15:59 Last Admin: 09/08/17 07:10 Dose: 3 ml Benztropine Mesylate (Cogentin) 1 mg PO DAILY SEAN Stop: 10/22/17 08:59 Last Admin: 09/08/17 09:06 Dose: 1 mg Carvedilol (Coreg) 6.25 mg PO BID SEAN Stop: 10/22/17 08:59 Last Admin: 09/08/17 09:06 Dose: Not Given Clonazepam (Klonopin) 1 mg PO BID SEAN PRN Reason: Protocol Stop: 10/26/17 16:59 Last Admin: 09/08/17 09:07 Dose: 1 mg Clonazepam (Klonopin) 1 mg PO 1300 SEAN PRN Reason: Protocol Stop: 11/01/17 14:14 Last Admin: 09/07/17 13:22 Dose: 1 mg Duloxetine HCl (Cymbalta) 30 mg PO BID SEAN PRN Reason: Protocol Stop: 10/22/17 08:59 Last Admin: 09/08/17 09:07 Dose: 30 mg Escitalopram Oxalate (Lexapro) 10 mg PO DAILY SEAN PRN Reason: Protocol Stop: 11/05/17 12:41 Last Admin: 09/08/17 09:07 Dose: 10 mg Gabapentin (Neurontin) 300 mg PO TID SEAN Stop: 10/25/17 15:44 Last Admin: 09/08/17 09:07 Dose: 300 mg Guaifenesin/Dextromethorphan (Robitussin Dm) 5 ml PO Q6HR PRN PRN Reason: Cough Stop: 10/22/17 13:37 Hydrocortisone (Hydrocortisone 1%) 1 appl TP BID SEAN Stop: 10/22/17 16:59 Last Admin: 09/08/17 09:06 Dose: 1 appl Hydroxyzine Pamoate (Vistaril) 25 mg PO Q4HR PRN; Protocol PRN Reason: Anxiety Stop: 10/28/17 05:46 Last Admin: 09/04/17 09:58 Dose: 25 mg Insulin Aspart (Novolog Insulin Sliding Scale) 0 units SUBQ ACHS SEAN PRN Reason: Protocol Stop: 10/22/17 16:29 Last Admin: 09/08/17 06:49 Dose: Not Given Lactulose (Cephulac) 30 gm PO BID SEAN Stop: 11/04/17 16:59 Last Admin: 09/08/17 09:07 Dose: 30 gm Levothyroxine Sodium (Synthroid) 0.025 mg PO QDAC SEAN Stop: 10/22/17 07:29 Last Admin: 09/08/17 06:50 Dose: 0.025 mg [place] Carbonate (Eskalith) 300 mg PO TID SEAN PRN Reason: Protocol Stop: 10/22/17 08:59 Last Admin: 09/08/17 09:08 Dose: 300 mg Lorazepam (Ativan) 0.5 mg PO Q4HR PRN; Protocol PRN Reason: Agitation Stop: 10/28/17 05:59 Last Admin: 09/08/17 06:08 Dose: 0.5 mg Miscellaneous (Probiotic Screen) 1 ea MC PRN PRN PRN Reason: PROTOCOL Stop: 10/23/17 16:19 Multivitamins/Vitamin C (Theragran) 1 tab PO DAILY SEAN Stop: 10/22/17 08:59 Last Admin: 09/08/17 09:08 Dose: 1 tab Olanzapine (Zyprexa) 5 mg PO DAILY SEAN PRN Reason: Protocol Stop: 10/27/17 08:59 Last Admin: 09/08/17 09:08 Dose: 5 mg Olanzapine 15 mg/ Olanzapine (10 mg) 25 mg PO DAILY SEAN Stop: 10/30/17 08:59 Last Admin: 09/08/17 09:08 Dose: 25 mg Ondansetron HCl (Zofran Odt) 4 mg PO Q6H PRN PRN Reason: Nausea / Vomiting Stop: 10/22/17 02:33 Pantoprazole Sodium (Protonix) 40 mg PO DAILY SEAN Stop: 10/22/17 08:59 Last Admin: 09/08/17 09:08 Dose: 40 mg Prednisone (Deltasone) 20 mg PO BID SEAN Stop: 10/24/17 16:59 Last Admin: 09/08/17 09:08 Dose: 20 mg General: Alert, Oriented x3, Cooperative, No acute distress HEENT: Atraumatic, PERRLA, EOMI Neck: Supple, +2 carotid pulse wo bruit Cardiovascular: Regular rate, Normal S1, Normal S2 Lungs: Other (diffuse expiratory wheezing.) Abdomen: Bowel sounds, Soft, Distended (Bowel sound presant.), Other (NO HSmegaly.) Extremities: Other (diffuse osteoarthritic changes present.) Neurological: Other (broad-based gait. Normal speech. Decreased power throughout upper and lower extremity.) Skin: Breakdown Psych/Mental Status: Other (depressed and labile.) Assessment/Plan - Assessment Assessment: COPD exacerbation better. Diabetes mellitus. Hypothyroidism. Hypertension. DJD. Leucocytosis due to reactive. Abdominal distension work up under progress. Constipation. High risk for fall. Debility. Decline in self care and mobility. - Plan Plan: Hand-held nebulizer. CT abd and pelvis today.. Anti constipation meds. Symptoms management. Medication management. General nursing care. Diabetes management. Psychiatric medication. Psych follow-up. Fall precautions. Chronic disease management. Discussed with staff. Nutritional Asmnt/Malnutr-PDOC - Dietary Evaluation Malnutrition Findings (Please click <Entered> for more info): Nutritional Asmnt/Malnutrition Start: 08/28/17 12: 51 Text: Status: Complete Freq: Document 08/28/17 12:51 SARAH (Rec: 08/28/17 13:04 [id number] Nutritional Asmnt/Malnutrition Patient General Information Nutritional Screening Moderate Risk Diagnosis psychosis Pertinent Medical Hx/Surgical Hx DM, hypothyroidism, DJD, peripheral neuropathy, COPD Subjective Information Pt seen eating lunch at the time of visit. Pt reported appetite OK, "I am very sick, food helped me feel better, taste good". Pt has no teeth noted, denied chewing or swallowing problem. Per notes, PO intake 100%. Current Diet Order/ Nutrition Support Low sodium 2gm Pertinent Medications novolog, levaquin, synthorid, theragran Pertinent Labs POC 110-356 in last 2 days Nutritional Hx/Data Height 1.83 m Height (Calculated Centimeters) 182.9 Current Weight (lbs) 90.718 kg Weight (Calculated Kilograms) 90.7 Weight (Calculated Grams) 51573.5 Ermine Body Weight 178 % Ermine Body Weight 112 Body Mass Index (BMI) 27.1 Weight Status Overweight GI Symptoms GI Symptoms None Last BM 08/27 Difficult in: None Skin Integrity/Comment: blackened abrasion to right knee, potential bruise to right eye Current %PO Good (75-100%) Estimated Nutritional Goals Calories/Kcals/Kg 25-30 Kcals Calculated 6189-8461 based on IBW 81kg Protein g/k Protein Calculated 81 Fluid: ml 2024-243ml (1ml/kcal) Nutritional Problem 1. Problem Problem altered nutrition related lab values Etiology hx of DM Signs/Symptoms: POC 110-356 Malnutrition Alert Protein-Calorie Malnutrition N/A Is there a minimum of two criteria No selected? Query Text:Check all the applicable criteria. A minimum of two criteria are recommended for diagnosis of either severe or non-severe malnutrition. Intervention/Recommendation Comments 1. Recommend adding CCHO-75g diet d/t elevated blood glucose and considering pt wt. 2. Monitor PO intake, wt, labs and skin integrity 3. F/U as moderate risk in -09/02 Expected Outcomes/Goals Expected Outcomes/Goals 1. PO intake continue to meet at least 75% of nutritional needs. 2. Wt stability, skin to remain intact, labs to approach WNL.
--- NOTE | 2017-09-08 10:03 | Diagnostic Imaging Report ---
CT scan abdomen and pelvis without intravenous contrast HISTORY: Abdominal distention, pain Total DLP equals 738 CTDI equals 13.3 Axial sections were obtained from the xiphoid process down to the pubic symphysis. Limited sections of the lower chest demonstrate accentuation and hazy faint infiltrates in the lower lobes. The liver exhibits a bulbous contour. No focal abnormalities. The spleen appears normal. The gallbladder is not seen. No focal abnormality seen within the pancreas. No significant focal renal lesions. No calculi. No hydronephrosis. There is moderately distended stool-filled large bowel. Stool-filled distended rectum also noted. Findings are consistent with changes of a fecal reaction and constipation. The exam of the pelvis demonstrates preservation of normal fat planes. No abnormal soft tissue masses or abnormal fluid collections. There is a small fat-containing left inguinal hernia. Degenerative changes noted within the spine. IMPRESSION: 1. Distended stool-filled colon and rectum consistent with changes of fecal reaction and constipation.
[2017-09-09] MEDS: Albuterol/Ipratropium Neb 3 ML AERS HHN SCH ×4 (01:31→20:45)
[2017-09-09] MEDS: Levothyroxine 0.025 Mg Tab PO SCH (06:40)
[2017-09-09] MEDS: INSULIN ASPART SLIDING SCALE 100 UNITS/ML UNIT SUBQ SCH ×4 (06:40→22:26)
[2017-09-09 08:45] LABS: % BASOPHILS 0.9 % (0.0-2.0); % LYMPHOCYTES 20.4 % (20.0-50.0); % MONOCYTES 5.2 % (2.0-10.0); % NEUTROPHILS 72.5 % (40.0-80.0); BASOPHILE ABSOLUTE 0.1 Th/cumm (0-0.2); EOSINOPHILE ABSOLUTE 0.2 Th/cmm (0.1-0.4); HEMATOCRIT 39.8 % (41.0-60); LYMPHOCYTE ABSOLUTE 3.1 Th/cmm (1.5-3.0); MEAN CELL VOLUME 89.3 fl (80-99); MEAN CORPUSCULAR HEMOGLOBIN 29.2 pg (27.0-31.0); MEAN CORPUSCULAR HGB CONC 32.7 pg (28.0-36.0); MEAN PLATELET VOLUME 7.2 fl; MONOCYTE ABSOLUTE 0.8 Th/cmm (0.3-1.0); NEUTROPHILE ABSOLUTE 11.2 Th/cmm (1.8-8.0); PLATELET COUNT 281 Th/cmm (150-400); RED BLOOD COUNT 4.46 Mil/cmm (3.80-5.80); RED CELL DISTRIBUTION WIDTH 13.9 % (11.5-20.0)
[2017-09-09 08:59] LABS: WHITE BLOOD COUNT 15.4 Th/cmm (4.8-10.8)
[2017-09-09] MEDS: OLANZAPINE PO SCH (09:04)
[2017-09-09] MEDS: Lactulose 10 Gm/15 mL 30mL UDC PO SCH ×2 (09:04→16:25)
[2017-09-09] MEDS: Pantoprazole 40 mg EC Tab PO SCH (09:05)
[2017-09-09] MEDS: Benztropine 1 MG TAB PO SCH (09:05)
[2017-09-09] MEDS: Multivitamin Tab PO SCH (09:06)
--- NOTE | 2017-09-09 11:10 | Progress Notes ---
DATE: 09/08/2017 SUBJECTIVE: The patient with head banging behaviors over the weekend, still very anxious, somewhat tearful, wants to leave as soon as possible, restless on exam but noted improvement. No longer on one-to-one, still with ongoing concerns of psychological distress and turmoil, however sleep fairly well, eating fairly well. He is doing a lot better on current medication regimen. Medications were reviewed. No EPS. No over sedation. ASSESSMENT: The patient does seem to be improving, but there were some events over the weekend. PLAN: We will on the side of caution, monitor for further 24 hours. JOB# [id number]
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
[2017-09-10] MEDS: Albuterol/Ipratropium Neb 3 ML AERS HHN SCH ×4 (00:13→20:12)
[2017-09-10] MEDS: Levothyroxine 0.025 Mg Tab PO SCH (06:30)
[2017-09-10] MEDS: INSULIN ASPART SLIDING SCALE 100 UNITS/ML UNIT SUBQ SCH ×4 (06:33→20:54)
[2017-09-10] MEDS: OLANZAPINE PO SCH (08:43)
[2017-09-10] MEDS: Pantoprazole 40 mg EC Tab PO SCH (08:45)
[2017-09-10] MEDS: Multivitamin Tab PO SCH (08:45)
[2017-09-10] MEDS: Benztropine 1 MG TAB PO SCH (08:45)
[2017-09-10] MEDS: Lactulose 10 Gm/15 mL 30mL UDC PO SCH ×2 (08:46→17:35)
--- NOTE | 2017-09-11 07:53 | Progress Notes ---
DATE: 09/10/2017 SUBJECTIVE: The patient was seen today 09/10/2017. He was supposed to have discharged yesterday, but due to the ambulance issue, he remained in the hospital. We are working to discharge him today. He was linear, engaged, smiling this morning. He has been medication compliant. Denying any SI, no HI, no intent, no plan. No psychotic symptoms. Complaining of some mild anxiety. Feels much better last night, eating well, getting along well with staff and peers. No agitation, no self-harming behaviors. Following the rules and directions. ASSESSMENT: Linear engaged, no suicidal ideation, no homicidal ideation. No psychosis. Anxiety, better controlled. No psychological distress or turmoil. Hopeful things will get better. PLAN: I will attempt to discharge today, pending ambulance arrangements. JOB# [id number]
== END 2017-09-10 21:00 | DRG 885 ==
LOC: GERO 01:33 → UNDOADMIN 01:33
PROVIDERS: ADMIT Psychiatry & Neurology Psychiatry; ATTEND Psychiatry & Neurology Psychiatry
DX: F33.3 Major depressive disorder, recurrent, severe with psychotic symptoms (principal); E11.42 Type 2 diabetes mellitus with diabetic polyneuropathy; F03.91 Unspecified dementia, unspecified severity, with behavioral disturbance; J44.1 Chronic obstructive pulmonary disease with (acute) exacerbation; S00.11XA Contusion of right eyelid and periocular area, initial encounter; D72.828 Other elevated white blood cell count; I10 Essential (primary) hypertension; F29 Unspecified psychosis not due to a substance or known physiological condition; L71.9 Rosacea, unspecified; E78.5 Hyperlipidemia, unspecified; E03.9 Hypothyroidism, unspecified; M19.90 Unspecified osteoarthritis, unspecified site; F41.9 Anxiety disorder, unspecified; R45.87 Impulsiveness; K59.00 Constipation, unspecified; X58.XXXA Exposure to other specified factors, initial encounter; H57.8 Other specified disorders of eye and adnexa; F41.1 Generalized anxiety disorder; Z91.81 History of falling; Z87.891 Personal history of nicotine dependence; Y93.89 Activity, other specified; Y92.89 Other specified places as the place of occurrence of the external cause; Y99.8 Other external cause status
CPT/HCPCS: 36415-UA; 36600-90; 74000-TC; 80053-TC; 82948-90; 83036-90; 85007-TC; 85025-TC; 85027-TC; 90779; 94640; 94760; G0410; J1200; J1630; J1815; J2060; J7051; J7512; J7613; Q0177; Z7610